=== PATIENT | male | born 1980 | race Caucasian/White ===

== ENCOUNTER 2024-05-22 02:44 | Inpatient (IN) ==
--- NOTE | 2024-05-22 03:12 | Emergency Department Note ---
Impression & Plan Cellulitis of right lower extremity, Elevated troponin, History of pulmonary embolism, Lymphangitis of lower extremity, Chest pain ED Provider Note CHIEF COMPLAINT: Right leg pain HISTORY OF PRESENTING ILLNESS: This 44-year-old male patient presents to the emergency department with his significant other for evaluation of right lower extremity redness, swelling, and pain. The symptoms started 2-3 days ago. He has had intermittent fever up to 102 F max. He is currently on Eliquis for history of PE in January 2024. He denies any injury or trauma to the area. He rates his discomfort as 7/10. He has some discomfort in the left side of his chest as well for the past 24 hrs. Denies SOB. Denies abdominal pain, nausea, or vomiting. He is able to walk, but with a limp. He has been taking Tylenol without improvement of his symptoms. He did take 1 Advil yesterday when his fever was really high and the Tylenol wasn't working. His tetanus shot is up to date. His PCP prescribed Doxycycline yesterday to cover for possible infection, but only saw pictures and did not examine the patient. REVIEW OF SYSTEMS: See HPI for pertinent positives and pertinent negatives. ALLERGIES: NKDA MEDICATIONS: Lisinopril-HCTZ, Eliquis, Vit D, Zyrtec PAST MEDICAL HISTORY: HTN, history of PE, allergic rhinitis PHYSICAL EXAM: VITALS: Vitals are noted on the nurse's note and reviewed by myself. GENERAL: Non toxic, no acute distress, non-diaphoretic. SKIN/MUSCULOSKELETAL: The patient has significant erythema and edema of the right lower extremity mainly from the ankle to the knee. This area also has some nonblanching beefy erythema. There is some lymphatic streaking up into the right groin. Possible cording felt, but this may just be secondary to edema. No erythema, edema, or warmth of the left lower extremity. The patient is tender to palpation over the area of erythema and edema of the right lower extremity. No bony or joint tenderness to palpation. Normal sensation to light and sharp touch of the right lower extremity. Dorsalis pedis and posterior tibial pulse 2+ and equal in the bilateral lower extremities. Capillary refill <2 sec. EYES: PERRLA. EOMI. Conjunctivae without injection, sclerae without icterus. NOSE: Patent without discharge. MOUTH: Mucous membranes moist. Uvula midline. Airway patent. NECK: Supple without nuchal rigidity. HEART: Regular rate and rhythm without murmurs gallops or rubs. LUNGS: Clear to auscultation bilaterally without wheezes, rales or rhonchi. No retractions or accessory muscle use. ABDOMEN: Positive bowel sounds x 4. Normal tympanic percussion. Soft, nontender. No masses or organomegaly. Park sign negative. No guarding or rebound tenderness. No focal RLQ or LLQ tenderness. NEURO: Patient was alert and oriented. No focal neurological deficits. DIFFERENTIAL DIAGNOSIS: Differential diagnosis includes cellulitis, abscess, sepsis, DVT, SVT, PE, PR, pneumonia, pericarditis, myocarditis, endocarditis, Lyme disease, or others. ED COURSE AND MEDICAL DECISION MAKING: MEDICATIONS GIVEN: 500 mL normal saline solution bolus. Morphine 4 mg IV and Zofran 4 mg IV. Initially Rocephin 2 g IV was ordered, but this was changed to vancomycin and Zosyn by the admitting provider. MONITOR: Continuous court recording monitor: Order was placed for continuous court recording monitor. Patient was placed on the court recording monitor and continuous pulse ox. Patient was noted to be in normal sinus rhythm at an initial rate of 80 bpm per my interpretation. EKG: EKG was interpreted by myself as normal sinus rhythm at 70 bpm with no acute ST or T wave changes. Repeat EKG showed normal sinus rhythm at 68 bpm with no acute ST or T wave changes and no significant change from his previous EKG. INTERPRETATION OF LABS: I interpreted the labs with full lab results as below in the lab section of this note. Pertinent lab results discussed in the MDM section below. INTERPRETATION OF IMAGING: Imaging studies were interpreted by myself and read by radiology as per the imaging section of this note. CTA of the chest with IV contrast showed no evidence for PE, pneumonia, pericardial effusion, or other acute cardiopulmonary etiology. Venous Doppler of the right lower extremity was negative for DVT, SVT, or other acute abnormalities. CONSULTATIONS: On-call hospitalist MDM SUMMARY: I examined the patient. The patient presented for evaluation of right lower extremity erythema, edema, and warmth that started 2 days ago. He has also had a fever. Started with left-sided chest pain approximately 24 hours ago. He is on Eliquis for history of PE in January 2024. The patient states that he had an echocardiogram and stress test at that time as well. The patient saw hematology and had a hypercoagulability workup without acute abnormalities noted. An IV lock was placed and labs were drawn. Due to his severe IV fluid shortage, the patient was started with 500 mL normal saline solution bolus. The patient was not tachycardic or hypertensive and his lactate was normal. Therefore no additional IV fluids were given in the ER. The patient was given morphine 4 mg IV and Zofran 4 mg IV with resolution of his pain. White blood cell count elevated 11.20. Hemoglobin normal at 15.9. Platelet count normal at 245. Coags were normal. Potassium 3.3 and glucose 125, but CMP otherwise without concerning abnormalities. Magnesium normal. Lactate normal. Due to the significant shortage of blood cultures, only 1 blood culture was obtained. The patient's high-sensitivity troponin was elevated at 682.5 with repeat high- sensitivity troponin at 740.2. I had a meaningful discussion about this patient with Dr. Whitney who agrees with my assessment and the treatment plan. The patient had 2 EKGs that were negative for ischemic changes. The patient's chest pain resolved with the morphine. We do not suspect STEMI or acute ischemia requiring emergent catheterization at this time. His elevated troponin may be secondary to increased demand due to his significant infection versus possible endocarditis versus NSTEMI. CTA of the chest with IV contrast showed no evidence for PE, pneumonia, pericardial effusion, or other acute cardiopulmonary etiology. Venous Doppler of the right lower extremity was negative for DVT, SVT, or other acute abnormalities. The patient's symptoms are likely secondary to a significant cellulitis of the right lower extremity. Initially Rocephin was ordered, but this was changed to vancomycin and Zosyn by the admitting provider. I spoke with the on-call hospitalist who agreed to admit the patient for further evaluation and treatment. Please refer to their dictation for further details. The patient's care was transferred in stable condition. DIAGNOSIS: Cellulitis of the right lower extremity with lymphatic streaking Chest pain Elevated troponin History of PE on Eliquis Past Med/Surg History Problem List (Updated 02/11/21 @ 12:54 by Enid Cueto MA) Chest pain (Acute) Non-ST elevation (NSTEMI) myocardial infarction History of pulmonary embolism (Acute) Elevated troponin (Acute) Cellulitis of right lower extremity (Acute) Chronic anticoagulation Hypomagnesemia Hypokalemia Elevated troponin Lymphangitis of lower extremity (Acute) Cellulitis of right lower extremity from knee to ankle Pulmonary embolism Diagnosed 01/2024 Seasonal allergies Vitamin D deficiency HLD (hyperlipidemia) HTN (hypertension) H/O wisdom tooth extraction Hx of tonsillectomy Family History (Updated 02/11/21 @ 08:05 by Enid Cueto MA) Mother Lung cancer Heart disease afib Hypertension Father Dyslipidemia Hypertension Grandfather (Paternal) Heart disease Grandmother (Maternal) Lung cancer Social History (Updated 02/11/21 @ 08:07 by Enid Cueto MA) Smoking Status: Never smoker Age Quit Using Tobacco: 33; Second Hand Exposure: No; Do You Dip or Chew Tobacco: Yes; Hx Alcohol Use: No Hx Substance Use: Yes Last Used Substance: Days (ago) Substance Use Type Other:: medical Preferred Language: [place] Communication Ability: Effective 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 Beliefs That Will Affect Care: None marital status: Life Partner Current Living Situation: Spouse Current Living Situation Comment: sig other and daughter current occupational status: employed 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 How many Children do You have: 1 Feels Safe at Home: Yes Safety Concerns: Feels Safe At This Time Do you think of yourself as: straight/heterosexual Gender Identity: Male Assistive Devices: None Assistive Devices Comment: using cane over last two days Allergies Allergies Allergy/AdvReac Type Severity Reaction Status Date / Time No Known Allergies Allergy Verified 05/22/24 16:54 Home Meds Home Medications Medication Instructions Recorded Confirmed loratadine 10 mg tablet (Allergy 10 mg PO DAILY 02/11/21 05/22/24 Relief (loratadine)) cholecalciferol (vitamin D3) 25 2,000 unit PO DAILY 02/09/24 05/22/24 mcg (1,000 unit) capsule apixaban 5 mg tablet (Eliquis) 5 mg PO BID 05/22/24 05/22/24 Previous Rx's Medication Instructions Recorded lisinopril 20 1 tab PO DAILY #90 tabs 03/13/24 mg-hydrochlorothiazide 12.5 mg tablet doxycycline hyclate 100 mg tablet 100 mg PO BID #14 tabs 05/21/24 cyanocobalamin (vitamin B-12) 1,000 mcg PO DAILY #30 tabs 05/23/24 1,000 mcg tablet Results & Data (ED) Vital Signs Vital Signs - 24 hr 05/22/24 02:48 05/22/24 04:42 05/22/24 04:44 Temperature 36.8 C Temperature Source Temporal Artery Scan Pulse Rate 86 72 70 Pulse Rate from SpO2 Sensor 72 Respiratory Rate 18 20 Respiratory Effort / Characteristics Non-Labored Spontaneous Respiratory Depth Normal Blood Pressure 153/96 H 128/86 Blood Pressure Mean 115 100 Blood Pressure Position Sitting Pulse Oximetry 95 96 Oxygen Delivery Method Room Air Sepsis Recent Fever Within 48 Hours Yes Sepsis New/Unexplained Change in Mental Status N/A Sepsis Action Taken by Nursing No Action Required 05/22/24 05:15 05/22/24 05:30 Temperature Temperature Source Pulse Rate 71 68 Pulse Rate from SpO2 Sensor 71 69 Respiratory Rate 17 18 Respiratory Effort / Characteristics Respiratory Depth Blood Pressure 140/97 143/86 H Blood Pressure Mean 111 105 Blood Pressure Position Pulse Oximetry 96 96 Oxygen Delivery Method Sepsis Recent Fever Within 48 Hours Sepsis New/Unexplained Change in Mental Status Sepsis Action Taken by Nursing Laboratory Data 05/23/24 06:39 05/23/24 06:39 Lab Results 05/22/24 05/22/24 Range/Units 03:40 05:32 WBC 11.20 H (4.8-10.8) K/ul RBC 5.27 (4.70-6.10) M/uL Hgb 15.9 (14.0-18.0) g/dl Hct 45.1 (42.0-52.0) % MCV 85.6 (80.0-100.0) fL MCH 30.2 (25.0-34.0) pg MCHC 35.3 (32.0-36.0) g/dL RDW Std Deviation 40.3 (36.4-46.3) fL RDW Coeff of Lou 13.0 (11.5-14.5) % Plt Count 245 (130-400) K/uL MPV 9.3 L (9.4-12.4) fL Immature Gran % (Auto) 0.6 % Neut % (Auto) 75.8 % Lymph % (Auto) 13.3 % Stoddard % (Auto) 9.4 % Eos % (Auto) 0.5 % Baso % (Auto) 0.4 % Neut # (Auto) 8.48 H (1.40-6.50) K/uL Lymph # (Auto) 1.49 (1.20-3.40) K/uL Stoddard # (Auto) 1.05 H (0.11-0.59) K/uL Eos # (Auto) 0.06 (0.00-0.50) K/uL Baso # (Auto) 0.05 (0.00-0.20) K/uL Immature Gran # (Auto) 0.07 (0.01-0.20) K/uL PT 11.4 (9.0-12.0) Seconds INR 1.1 (0.9-1.1) APTT 30 (21-31) Seconds PTT Ratio 1.1 Sodium 137 (136-145) mmol/L Potassium 3.3 L (3.5-5.1) mmol/L Chloride 101 (98-107) mmol/L Carbon Dioxide 26 (21-32) mmol/L Anion Gap 10 (3-11) BUN 16 (6-23) mg/dl Creatinine 0.74 (0.6-1.4) mg/dl Est Cr Clr Drug Dosing 181.8 ml/min eGFR 114.58 BUN/Creatinine Ratio 21.6 H (10-20) Glucose 125 H (70-99(Fasting)) mg/dl Lactate 0.9 (0.4-2.0) mmol/L Calcium 8.5 L (8.6-10.3) mg/dl Magnesium 1.8 (1.7-2.4) mg/dl Total Bilirubin 0.7 (0.2-1.0) mg/dl AST 29 (13-39) U/L ALT 30 (7-52) U/L Alkaline Phosphatase 55 (34-104) U/L Troponin I High Sens 682.5 H* 740.2 H* (0-20) pg/ml Total Protein 7.3 (6.0-8.3) gm/dl Albumin 3.8 (3.4-5.0) gm/dl Globulin 3.5 (2.5-4.0) gm/dl Albumin/Globulin Ratio 1.1 (0.9-2) Lyme Disease Screen Negative (Negative) Administered Medications Acetaminophen (Acetaminophen 500 Mg Tab) 1,000 mg PO Q8H PRN PRN Reason: Pain or Fever Stop: 06/21/24 19:47 Last Admin: 05/23/24 11:12 Dose: 1,000 mg Documented By: Admin: 05/22/24 20:03 Dose: 1,000 mg Documented By: BRYON Aspirin (Aspirin 81 Mg Ectab) 81 mg PO [facility] Stop: 06/22/24 08:59 Last Admin: 05/23/24 08:17 Dose: 81 mg Documented By: EP Cyanocobalamin (Cyanocobalamin (B-12) 500 Mcg Tablet) 1,000 mcg PO [facility] Stop: 06/22/24 08:59 Last Admin: 05/23/24 11:05 Dose: 1,000 mcg Documented By: EP Heparin Sodium/Dextrose (Heparin Sodium/Dextrose) 25,000 units in 500 mls @ 26 mls/hr IV .[id number] [facility]; Protocol Stop: 06/21/24 06:44 Last Titration: 05/23/24 19:18 Dose: 1,300 units/hr, 26 mls/hr Documented By: DE Co-signed By: EP Titration: 05/23/24 15:45 Dose: 1,300 units/hr, 26 mls/hr Documented By: EP Co-signed By: BT Admin: 05/23/24 07:54 Dose: 1,200 units/hr, 24 mls/hr Documented By: EP Co-signed By: BETINA Titration: 05/23/24 07:54 Dose: Infused Documented By: EP Co-signed By: BETINA Titration: 05/23/24 07:40 Dose: 1,200 units/hr, 24 mls/hr Documented By: EP Co-signed By: CA Titration: 05/23/24 07:20 Dose: 1,000 units/hr, 20 mls/hr Documented By: EP Co-signed By: BRYON Titration: 05/22/24 19:06 Dose: 1,000 units/hr, 20 mls/hr Documented By: BECK Co-signed By: BRYON Admin: 05/22/24 07:08 Dose: 1,000 units/hr, 20 mls/hr Documented By: MELANIA Co-signed By: HS Ceftriaxone Sodium (Rocephin) 2,000 mg in 50 mls @ 100 mls/hr IV Q24H [facility] Stop: 05/30/24 13:59 Last Infusion: 05/23/24 16:21 Dose: Infused Documented By: HCB Co-signed By: DAYRON Admin: 05/23/24 15:47 Dose: 100 mls/hr Documented By: KYLEE Isosorbide Mononitrate (Isosorbide Stoddard Extended Rel 30 Mg Tabcr) 30 mg PO QAM KRISTINA Stop: 06/21/24 16:29 Last Admin: 05/23/24 08:16 Dose: 30 mg Documented By: Admin: 05/22/24 17:00 Dose: 30 mg Documented By: BECK Metoprolol Tartrate (Metoprolol Tartrate 25 Mg Tab) 25 mg PO BID KRSITINA Stop: 06/21/24 20:59 Last Admin: 05/23/24 08:16 Dose: 25 mg Documented By: Admin: 05/22/24 20:49 Dose: 25 mg Documented By: BRYON Discontinued Medications Aspirin (Aspirin 325 Mg Ectab) 325 mg PO ONE ONE Stop: 05/22/24 17:09 Last Admin: 05/22/24 17:56 Dose: 325 mg Documented By: BECK Heparin Sodium (Porcine) (Heparin Sod (Porcine) 1000 Unit/Ml) 4,500 units IV NOW ONE Stop: 05/23/24 07:36 Last Admin: 05/23/24 09:52 Dose: Not Given Documented By: KYLEE Heparin Sodium/Dextrose (Heparin Iv Adult Wt-Based Low-Dose *No* Initial Bolus Protocol) 1 each IV ONE STA; Protocol Stop: 05/22/24 05:49 Last Admin: 05/22/24 07:09 Dose: Not Given Documented By: MELANIA Sodium Chloride (Nss) 500 mls @ 999 mls/hr IV .Q31M ONE Stop: 05/22/24 03:52 Last Infusion: 05/22/24 05:01 Dose: Infused Documented By: Admin: 05/22/24 03:46 Dose: 999 mls/hr Documented By: ASHLEY Ceftriaxone Sodium (Rocephin) 2,000 mg in 50 mls @ 100 mls/hr IV NOW STA Stop: 05/22/24 05:30 Last Admin: 05/22/24 06:26 Dose: Not Given Documented By: ASHLEY Vancomycin HCl 2,500 mg/ (Sodium Chloride) 550 mls @ 180 mls/hr IV NOW STA Stop: 05/22/24 08:51 Last Infusion: 05/22/24 10:57 Dose: Infused Documented By: Admin: 05/22/24 07:35 Dose: 180 mls/hr Documented By: MELANIA Piperacillin Sod/Tazobactam Sod (Zosyn) 4.5 gm in 100 mls @ 25 mls/hr IV Q8H KRISTINA; Protocol Stop: 05/29/24 11:59 Last Infusion: 05/23/24 15:02 Dose: Infused Documented By: Admin: 05/23/24 11:11 Dose: 25 mls/hr Documented By: Infusion: 05/23/24 07:56 Dose: Infused Documented By: Admin: 05/23/24 03:46 Dose: 25 mls/hr Documented By: Infusion: 05/22/24 23:32 Dose: Infused Documented By: Admin: 05/22/24 19:47 Dose: 25 mls/hr Documented By: Infusion: 05/22/24 15:34 Dose: Infused Documented By: Admin: 05/22/24 11:29 Dose: 25 mls/hr Documented By: BECK Magnesium Sulfate/Dextrose (Magnesium Sulfate / D5w) 1 gm in 100 mls @ 50 mls/hr IV ONE STA Stop: 05/22/24 07:47 Last Infusion: 05/22/24 09:08 Dose: Infused Documented By: Admin: 05/22/24 06:24 Dose: 50 mls/hr Documented By: ASHLEY Piperacillin Sod/Tazobactam Sod (Zosyn) 4.5 gm in 100 mls @ 200 mls/hr IV ONE STA; Protocol Stop: 05/22/24 06:18 Last Infusion: 05/22/24 07:05 Dose: Infused Documented By: Admin: 05/22/24 06:23 Dose: 200 mls/hr Documented By: ASHLEY Potassium Chloride/Sodium Chloride (Normal Saline W/20 Meq Kcl) 20 meq in 1,000 mls @ 80 mls/hr IV .[id number] STA Stop: 05/22/24 18:23 Last Infusion: 05/22/24 20:41 Dose: Infused Documented By: Admin: 05/22/24 07:20 Dose: 80 mls/hr Documented By: MELANIA Vancomycin HCl 1,250 mg/ (Dextrose) 275 mls @ 200 mls/hr IV Q8H KRISTINA Stop: 05/29/24 15:59 Last Infusion: 05/23/24 00:50 Dose: Infused Documented By: Admin: 05/22/24 23:05 Dose: 200 mls/hr Documented By: Infusion: 05/22/24 16:49 Dose: Infused Documented By: Admin: 05/22/24 15:18 Dose: 200 mls/hr Documented By: BECK Heparin Sodium (Porcine) 4,000 (units/ Syringe) 4 mls @ 10 mls/min IV NOW ONE Stop: 05/23/24 08:01 Last Admin: 05/23/24 08:09 Dose: 10 mls/min Documented By: KYLEE Co-signed By: BETINA Vancomycin HCl 2,000 mg/ (Sodium Chloride) 540 mls @ 200 mls/hr IV Q12H KRISTINA Stop: 05/29/24 23:59 Last Infusion: 05/23/24 14:53 Dose: Infused Documented By: Admin: 05/23/24 08:15 Dose: 200 mls/hr Documented By: KYLEE Ioversol (Optiray 320 125ml) 125 ml IV ONCE ONE Stop: 05/22/24 04:39 Last Admin: 05/22/24 04:38 Dose: 118 ml Documented By: LYNDSEY Morphine Sulfate (Morphine Sulfate 4 Mg/Ml 1 Ml Carp\Vial) 4 mg IV NOW STA Stop: 05/22/24 03:23 Last Admin: 05/22/24 03:45 Dose: 4 mg Documented By: ASHLEY Ondansetron HCl (Ondansetron Inj 2 Mg/Ml 2 Ml Vial) 4 mg IV NOW STA Stop: 05/22/24 03:23 Last Admin: 05/22/24 03:46 Dose: 4 mg Documented By: ASHLEY Potassium Chloride (Potassium Chloride Crtab 20 Meq Tabcr) 40 meq PO NOW STA Stop: 05/22/24 05:38 Last Admin: 05/22/24 06:24 Dose: 40 meq Documented By: ASHLEY Imaging Data Radiologist's Impression: Venous Doppler Study 05/22/24 03:22 Exam(s): US VENOUS RIGHT LOWER EXTREMITY EXAM: US Duplex Right Lower Extremity Veins CLINICAL HISTORY: Evaluate Deep vein thrombosis vs cellulitis. TECHNIQUE: Real-time duplex ultrasound scan of the right lower extremity veins integrating B-mode two-dimensional vascular structure, Doppler spectral analysis, color flow Doppler imaging and compression. COMPARISON: No relevant prior studies available. FINDINGS: Deep veins: Unremarkable. No Deep vein thrombosis in the visualized common femoral, femoral, proximal deep femoral or popliteal veins. The veins demonstrate normal color flow, are normally compressible, with normal phasic flow and/or augmentation response. Superficial veins: Unremarkable. No thrombus in the visualized great saphenous vein. Soft tissues: No acute findings. No popliteal cyst. IMPRESSION: No deep vein thrombosis of the right lower extremity. Electronically signed by: Jaylin Oakley MD 05/22/24 04:52 AM Chest CTA 05/22/24 03:23 Exam(s): CTA CHEST IV Amt: 118 ML OPTIRAY 320 EXAM: CT Angiography Chest With Intravenous Contrast CLINICAL HISTORY: Chest Pain TECHNIQUE: Axial computed tomographic angiography images of the chest with intravenous contrast. MIPS images were created and reviewed. CTDI is 40. 27 mGy and DLP is 931.59 mGy-cm. Automated exposure control was utilized for the study. A dose lowering technique was utilized adhering to the principles of ALARA. MIP reconstructed images were created and reviewed. COMPARISON: No relevant prior studies available. FINDINGS: Pulmonary arteries: Unremarkable. No pulmonary embolism. Aorta: No acute findings. No thoracic aortic aneurysm. Lungs: Unremarkable. No mass. No consolidation. Pleural space: Unremarkable. No significant effusion. No pneumothorax. Heart: Unremarkable. No cardiomegaly. No significant pericardial effusion. No evidence of RV dysfunction. Bones/joints: There are degenerative changes of the spine. No acute fracture. No dislocation. Soft tissues: Unremarkable. Lymph nodes: Unremarkable. No enlarged lymph nodes. IMPRESSION: No pulmonary embolus. Electronically signed by: Jaylin Oakley MD 05/22/24 04:53 AM Discharge Plan Visit Data Chief Complaint: Leg Injury/Pain Stated Complaint: RIGHT LEG PAIN ED Provider: Naz Whitney ED Midlevel Provider: Holly Alvarez Discharge Problem: Cellulitis of right lower extremity, Elevated troponin, History of pulmonary embolism, Lymphangitis of lower extremity, Chest pain Patient Disposition: Admitted As Inpatient Condition: Fair Discharge Instructions Interventions: ED Discharge Assessment Last Done: 05/22/24 08:33 Discharge Problem: Chest pain Qualifiers: Chest pain type: unspecified Qualified Code(s): R07.9 - Chest pain, unspecified
[2024-05-22] MEDS: MoRPHine SULFATE 4 MG/ML 1 ML CARP\\VIAL IV STA (03:45)
[2024-05-22] MEDS: SODIUM CHLORIDE 0.9% 500 ML IV ONE (03:46)
[2024-05-22] MEDS: ONDANSETRON INJ 2 MG/ML 2 ML VIAL IV STA (03:46)
[2024-05-22 04:02] LABS: Basophils # (auto) 0.05 K/uL (0.00-0.20); Basophils % (auto) 0.4 %; Eosinophils # (auto) 0.06 K/uL (0.00-0.50); Eosinophils % (auto) 0.5 %; Hematocrit (blood only) 45.1 % (42.0-52.0); Hemoglobin 15.9 g/dl (14.0-18.0); Immature Granulocytes # (auto) 0.07 K/uL (0.01-0.20); Immature Granulocytes % (auto) 0.6 %; Lymphocytes # (auto) 1.49 K/uL (1.20-3.40); Lymphocytes % (auto) 13.3 %; Mean Corpuscular Hemoglobin 30.2 pg (25.0-34.0); Mean Corpuscular Hgb Conc 35.3 g/dL (32.0-36.0); Mean Corpuscular Volume 85.6 fL (80.0-100.0); Mean Platelet Volume 9.3 fL (9.4-12.4); Monocytes # (auto) 1.05 K/uL (0.11-0.59); Monocytes % (auto) 9.4 %; Neutrophils # (auto) 8.48 K/uL (1.40-6.50); Neutrophils % (auto) 75.8 %; Platelet Count 245 K/uL (130-400); RDW Standard Deviation 40.3 fL (36.4-46.3); Red Blood Count 5.27 M/uL (4.70-6.10)
[2024-05-22 04:18] LABS: Albumin Globulin Ratio 1.1 (0.9-2); Albumin Level 3.8 gm/dl (3.4-5.0); BUN Creatinine Ratio 21.6 (10-20); Bilirubin,Total 0.7 mg/dl (0.2-1.0); Calcium 8.5 mg/dl (8.6-10.3); Creatinine Clr Calc Pharmacy 181.8 ml/min; Globulin 3.5 gm/dl (2.5-4.0); Magnesium 1.8 mg/dl (1.7-2.4); Potassium 3.3 mmol/L (3.5-5.1); Total Protein 7.3 gm/dl (6.0-8.3)
[2024-05-22 04:29] LABS: INR 1.1 (0.9-1.1); Partial Thromboplastin Ratio 1.1; Partial Thromboplastin Time 30 Seconds (21-31); Prothrombin Time 11.4 Seconds (9.0-12.0); Troponin I High Sensitivity 682.5 pg/ml (0-20)
[2024-05-22] MEDS: OPTIRAY 320 125ml IV ONE (04:38)
--- NOTE | 2024-05-22 04:53 | Ultrasound Report ---
Exam(s): US VENOUS RIGHT LOWER EXTREMITY EXAM: US Duplex Right Lower Extremity Veins CLINICAL HISTORY: Evaluate Deep vein thrombosis vs cellulitis. TECHNIQUE: Real-time duplex ultrasound scan of the right lower extremity veins integrating B-mode two-dimensional vascular structure, Doppler spectral analysis, color flow Doppler imaging and compression. COMPARISON: No relevant prior studies available. FINDINGS: Deep veins: Unremarkable. No Deep vein thrombosis in the visualized common femoral, femoral, proximal deep femoral or popliteal veins. The veins demonstrate normal color flow, are normally compressible, with normal phasic flow and/or augmentation response. Superficial veins: Unremarkable. No thrombus in the visualized great saphenous vein. Soft tissues: No acute findings. No popliteal cyst. IMPRESSION: No deep vein thrombosis of the right lower extremity. Electronically signed by: Jaylin Oakley MD 05/22/24 04:52 AM
--- NOTE | 2024-05-22 04:54 | CT Scan Report ---
Exam(s): CTA CHEST IV Amt: 118 ML OPTIRAY 320 EXAM: CT Angiography Chest With Intravenous Contrast CLINICAL HISTORY: Chest Pain TECHNIQUE: Axial computed tomographic angiography images of the chest with intravenous contrast. MIPS images were created and reviewed. CTDI is 40. 27 mGy and DLP is 931.59 mGy-cm. Automated exposure control was utilized for the study. A dose lowering technique was utilized adhering to the principles of ALARA. MIP reconstructed images were created and reviewed. COMPARISON: No relevant prior studies available. FINDINGS: Pulmonary arteries: Unremarkable. No pulmonary embolism. Aorta: No acute findings. No thoracic aortic aneurysm. Lungs: Unremarkable. No mass. No consolidation. Pleural space: Unremarkable. No significant effusion. No pneumothorax. Heart: Unremarkable. No cardiomegaly. No significant pericardial effusion. No evidence of RV dysfunction. Bones/joints: There are degenerative changes of the spine. No acute fracture. No dislocation. Soft tissues: Unremarkable. Lymph nodes: Unremarkable. No enlarged lymph nodes. IMPRESSION: No pulmonary embolus. Electronically signed by: Jaylin Oakley MD 05/22/24 04:53 AM
[2024-05-22] MEDS ORDERED: VANCOMYCIN CONSULT ACTIVE PRN (05:36)
[2024-05-22] MEDS ORDERED: ACETAMINOPHEN 1,000 MG/100 ML VIAL IV PRN (05:37)
--- NOTE | 2024-05-22 05:56 | History & Physical Report ---
Date of Service May 22, 2024 Assessment & Plan (1) Cellulitis of right lower extremity from knee to ankle: (2) Lymphangitis of lower extremity: (3) Elevated troponin: (4) Chronic anticoagulation: (5) Pulmonary embolism: (6) HLD (hyperlipidemia): (7) HTN (hypertension): (8) Hypokalemia: (9) Hypomagnesemia: Plan Cellulitis right lower extremity with ascending lymphangitis- Place on vancomycin IV per pharmacokinetic monitoring Zosyn 4.5 g IV every 8 hours Right lower extremity DVT study is negative this evening Patient with negative bilateral lower extremity Dopplers on 02/09/2024 Great saphenous vein reflux was identified in the below-knee segment right lower extremity on venous Dopplers on 06/02/2023 Negative left lower extremity arterial Doppler on 02/11/2024 Was seen by hematology Dr. Childress at [facility] on 02/24/2024 Consulting infectious disease or other extremity cellulitis and ascending lymphangitis, and possible endocarditis Pulmonary embolism- Involving small segmental to subsegmental pulmonary arteries with evidence of mild right ventricular strain noted on CTA PE protocol on 02/09/2024 Since that time he has been on Eliquis, with last dosing taken 6:30 PM last evening Changing Eliquis to heparin drip low-dose no bolus per protocol at 6:30 AM this morning in case a procedure needs to be done later on in the day today Elevated troponin/left-sided chest pain with mild dyspnea on exertion- The patient will be admitted to telemetry for serial cardiac enzymes, serial EKG's, cardiac rhythm monitoring and a 2-D echocardiogram with Dopplers. Troponin 682.5 with follow-up 740.2 EKG showed normal sinus rhythm at 70, with no acute ST-T changes In addition to evaluating for CAD/NSTEMI, there is concern regarding possible endocarditis in the setting of infection, which will be covered by the above antibiotics Consult cardiology Electrolyte disturbances/hypokalemia/hypomagnesemia- Likely secondary to lisinopril/HCTZ, which will be held Given Klor-Con 40 mill equivalents p.o. Giving magnesium sulfate [address] on NSS + KCl 20 mEq's at 80 mL/h x 1 L Repeat laboratories in the a.m. History of Present Illness Chief Complaint: The patient reports that about 10 days ago he started to feel some intermittent left-sided chest pain with mild dyspnea on exertion, that would come and go. 3 days ago he developed a temperature to 101 F and had some right lower extremity discomfort at that time. 2 days ago he started develop right lower extremity swelling, pain and it felt warm. This evening he woke up, and right lower extremity was significantly worse, looking much darker red color, pain was worse, and the warmth was worse. His most recent changes woke him up from sleep, he became concerned, and came to the emergency department for assessment. Primary Care Provider: Ana Paula Olivas DO The patient is a 44-year-old male with a past medical history including pulmonary embolism, seasonal allergies, vitamin D deficiency, hyperlipidemia, hypertension, and morbid obesity. He had visited his PCP 02/09/2024 due to left calf pain, and had a stat venous Doppler ordered at that time which was negative for DVT in the left lower extremity.. His first venous Doppler study was performed on 06/02/2023 which was negative for bilateral DVT, but did but did show great saphenous vein reflux identified in the below knee segment of the right lower extremity. He also underwent a CT angio chest PE protocol on 02/09/2024 which showed small segmental to subsegmental emboli in right upper and right lower lobes and a suspected tiny subsegmental left lower lobe pulmonary artery embolus, for which she was started on Eliquis. On 02/11/2024 he underwent left lower extremity arterial studies that were negative for any significant stenosis. The patient presents to the emergency department due to symptoms as noted above. Allergies Allergy/AdvReac Type Severity Reaction Status Date / Time No Known Allergies Allergy Verified 02/09/24 12:29 Home Medications Medication Instructions Recorded Confirmed Type loratadine 10 mg tablet (Allergy 10 mg PO DAILY 02/11/21 02/09/24 History Relief (loratadine)) cholecalciferol (vitamin D3) 25 2,000 unit PO DAILY 02/09/24 02/09/24 History mcg (1,000 unit) capsule apixaban 5 mg (74 tabs) tablets in 5 mg PO BID #180 ea 03/02/24 Rx a dose pack (Eliquis) lisinopril 20 1 tab PO DAILY #90 tabs 03/13/24 Rx mg-hydrochlorothiazide 12.5 mg tablet doxycycline hyclate 100 mg tablet 100 mg PO BID #14 tabs 05/21/24 Rx Past Med/Surg History Problem List (Updated 02/11/21 @ 12:54 by Enid Cueto MA) Chronic anticoagulation Hypomagnesemia Hypokalemia Elevated troponin Lymphangitis of lower extremity Cellulitis of right lower extremity from knee to ankle Pulmonary embolism Diagnosed 01/2024 Seasonal allergies Vitamin D deficiency HLD (hyperlipidemia) HTN (hypertension) H/O wisdom tooth extraction Hx of tonsillectomy Family History (Updated 02/11/21 @ 08:05 by Enid Cueto MA) Mother Lung cancer Heart disease afib Hypertension Father Dyslipidemia Hypertension Grandfather (Paternal) Heart disease Grandmother (Maternal) Lung cancer Social History (Updated 02/11/21 @ 08:07 by Enid Cueto MA) Smoking Status: Former smoker Age Quit Using Tobacco: 33; Second Hand Exposure: No; Do You Dip or Chew Tobacco: Yes; Hx Alcohol Use: No Hx Substance Use: No Preferred Language: Irish marital status: Life Partner Current Living Situation: Significant Other Current Living Situation Comment: sig other and daughter current occupational status: employed 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 How many Children do You have: 1 Feels Safe at Home: Yes Do you think of yourself as: straight/heterosexual Gender Identity: Male Review of Systems Review of Systems: The patient denies palpitations, sore throat, chills, sweats, nausea, vomiting, diarrhea , constipation, abdominal pain, pelvic pain, blood in urine or stool, dysuria, urinary frequency or urgency, lightheadedness, dizziness, headache, memory loss, loss of consciousness, abnormal bruising or bleeding, imbalance, focal or generalized weakness, numbness or tingling in arms, generalized arthralgias or myalgias, back or neck pain, or night sweats. The review of systems is otherwise negative other than for that already noted above, and at least 10 systems have been reviewed. Physical Exam Physical Exam: The patient is awake, alert and oriented 3, well developed and well nourished, normocephalic and atraumatic, lying in bed and in no acute distress. HEENT--PERRL, EOMI, mucous membranes and oropharynx normal Neck--supple. No JVD. No bruits. Thyroid normal, trachea midline, no adenopathy. Heart--normal S1 and S2. No murmurs, rubs or gallops. Lungs--clear bilaterally, no respiratory distress, no accessory muscle use. Abdomen--normal bowel sounds and soft. Nontender. Nondistended. Obese Extremities--right lower extremity with 1+ pretibial and pedal pitting edema. Left lower extremity is without edema Dermatologic--right lower extremity with dark red central area, surrounding account technician red area, with significant warmth. There is tracking medially from the upper calf palpable lymph node left lower extremity is normal. Neurologic--cranial nerves II through XII grossly intact. Rheumatologic--normal range of motion. Psychiatric--normal affect. Results & Data Results & Data Vital Signs (Past 12 Hours) Vital Signs Temp Pulse Resp BP Pulse Ox O2 Del Method 05/22/24 05:30 68 18 143/86 H 96 05/22/24 05:15 71 17 140/97 96 05/22/24 04:44 70 05/22/24 04:42 72 20 128/86 96 05/22/24 02:48 36.8 C 86 18 153/96 H 95 Room Air Laboratory Results Laboratory Results WBC 11.20 K/ul (4.8-10.8) H 05/22/24 03:40 RBC 5.27 M/uL (4.70-6.10) 05/22/24 03:40 Hgb 15.9 g/dl (14.0-18.0) 05/22/24 03:40 Hct 45.1 % (42.0-52.0) 05/22/24 03:40 MCV 85.6 fL (80.0-100.0) 05/22/24 03:40 MCH 30.2 pg (25.0-34.0) 05/22/24 03:40 MCHC 35.3 g/dL (32.0-36.0) 05/22/24 03:40 RDW Std Deviation 40.3 fL (36.4-46.3) 05/22/24 03:40 RDW Coeff of Lou 13.0 % (11.5-14.5) 05/22/24 03:40 Plt Count 245 K/uL (130-400) 05/22/24 03:40 MPV 9.3 fL (9.4-12.4) L 05/22/24 03:40 Immature Gran % (Auto) 0.6 % 05/22/24 03:40 Neut % (Auto) 75.8 % 05/22/24 03:40 Lymph % (Auto) 13.3 % 05/22/24 03:40 Sabine % (Auto) 9.4 % 05/22/24 03:40 Eos % (Auto) 0.5 % 05/22/24 03:40 Baso % (Auto) 0.4 % 05/22/24 03:40 Neut # (Auto) 8.48 K/uL (1.40-6.50) H 05/22/24 03:40 Lymph # (Auto) 1.49 K/uL (1.20-3.40) 05/22/24 03:40 Sabine # (Auto) 1.05 K/uL (0.11-0.59) H 05/22/24 03:40 Eos # (Auto) 0.06 K/uL (0.00-0.50) 05/22/24 03:40 Baso # (Auto) 0.05 K/uL (0.00-0.20) 05/22/24 03:40 Immature Gran # (Auto) 0.07 K/uL (0.01-0.20) 05/22/24 03:40 PT 11.4 Seconds (9.0-12.0) 05/22/24 03:40 INR 1.1 (0.9-1.1) 05/22/24 03:40 APTT 30 Seconds (21-31) 05/22/24 03:40 PTT Ratio 1.1 05/22/24 03:40 Sodium 137 mmol/L (136-145) 05/22/24 03:40 Potassium 3.3 mmol/L (3.5-5.1) L 05/22/24 03:40 Chloride 101 mmol/L (98-107) 05/22/24 03:40 Carbon Dioxide 26 mmol/L (21-32) 05/22/24 03:40 Anion Gap 10 (3-11) 05/22/24 03:40 BUN 16 mg/dl (6-23) 05/22/24 03:40 Creatinine 0.74 mg/dl (0.6-1.4) 05/22/24 03:40 Est Cr Clr Drug Dosing 181.8 ml/min 05/22/24 03:40 eGFR 114.58 05/22/24 03:40 BUN/Creatinine Ratio 21.6 (10-20) H 05/22/24 03:40 Glucose 125 mg/dl (70-99(Fasting)) H 05/22/24 03:40 Lactate 0.9 mmol/L (0.4-2.0) 05/22/24 03:40 Calcium 8.5 mg/dl (8.6-10.3) L 05/22/24 03:40 Magnesium 1.8 mg/dl (1.7-2.4) 05/22/24 03:40 Total Bilirubin 0.7 mg/dl (0.2-1.0) 05/22/24 03:40 AST 29 U/L (13-39) 05/22/24 03:40 ALT 30 U/L (7-52) 05/22/24 03:40 Alkaline Phosphatase 55 U/L (34-104) 05/22/24 03:40 Troponin I High Sens 740.2 pg/ml (0-20) H* 05/22/24 05:32 Total Protein 7.3 gm/dl (6.0-8.3) 05/22/24 03:40 Albumin 3.8 gm/dl (3.4-5.0) 05/22/24 03:40 Globulin 3.5 gm/dl (2.5-4.0) 05/22/24 03:40 Albumin/Globulin Ratio 1.1 (0.9-2) 05/22/24 03:40 Lyme Disease Screen Negative (Negative) 05/22/24 03:40 Impressions Venous Doppler Study 05/22/24 03:22 Exam(s): US VENOUS RIGHT LOWER EXTREMITY EXAM: US Duplex Right Lower Extremity Veins CLINICAL HISTORY: Evaluate Deep vein thrombosis vs cellulitis. TECHNIQUE: Real-time duplex ultrasound scan of the right lower extremity veins integrating B-mode two-dimensional vascular structure, Doppler spectral analysis, color flow Doppler imaging and compression. COMPARISON: No relevant prior studies available. FINDINGS: Deep veins: Unremarkable. No Deep vein thrombosis in the visualized common femoral, femoral, proximal deep femoral or popliteal veins. The veins demonstrate normal color flow, are normally compressible, with normal phasic flow and/or augmentation response. Superficial veins: Unremarkable. No thrombus in the visualized great saphenous vein. Soft tissues: No acute findings. No popliteal cyst. IMPRESSION: No deep vein thrombosis of the right lower extremity. Electronically signed by: Jaylin Oakley MD 05/22/24 04:52 AM Chest CTA 05/22/24 03:23 Exam(s): CTA CHEST IV Amt: 118 ML OPTIRAY 320 EXAM: CT Angiography Chest With Intravenous Contrast CLINICAL HISTORY: Chest Pain TECHNIQUE: Axial computed tomographic angiography images of the chest with intravenous contrast. MIPS images were created and reviewed. CTDI is 40. 27 mGy and DLP is 931.59 mGy-cm. Automated exposure control was utilized for the study. A dose lowering technique was utilized adhering to the principles of ALARA. MIP reconstructed images were created and reviewed. COMPARISON: No relevant prior studies available. FINDINGS: Pulmonary arteries: Unremarkable. No pulmonary embolism. Aorta: No acute findings. No thoracic aortic aneurysm. Lungs: Unremarkable. No mass. No consolidation. Pleural space: Unremarkable. No significant effusion. No pneumothorax. Heart: Unremarkable. No cardiomegaly. No significant pericardial effusion. No evidence of RV dysfunction. Bones/joints: There are degenerative changes of the spine. No acute fracture. No dislocation. Soft tissues: Unremarkable. Lymph nodes: Unremarkable. No enlarged lymph nodes. IMPRESSION: No pulmonary embolus. Electronically signed by: Jaylin Oakley MD 05/22/24 04:53 AM Code Status & VTE Plan Code Status Full code VTE Prophylaxis Plan VTE Prophylaxis will be ordered: Yes PG Care Time/CCT Total # of Minutes Spent Total Time Spent with Patient: Total time spent is greater than 50% in coordination of care (as documented) at patient's floor/unit and/or counseling patient: Coding Level of Care Code 80493 INT INP/OBS CARE 3/75MIN Diagnoses Cellulitis of right lower extremity from knee to ankle L03.115 Lymphangitis of lower extremity I89.1 Elevated troponin R79.89 Chronic anticoagulation Z79.01 Pulmonary embolism I26.99 HLD (hyperlipidemia) E78.5 HTN (hypertension) I10 Hypokalemia E87.6 Hypomagnesemia E83.42
[2024-05-22] MEDS: PIPERACILLIN/TAZOBACTAM 4.5 GM/100 ML BAG IV STA (06:23)
[2024-05-22] MEDS: POTASSIUM CHLORIDE CRTAB 20 MEQ TABCR PO STA (06:24)
[2024-05-22] MEDS: MAGNESIUM SULFATE / D5W 1 GM/100 ML BAG IV STA (06:24)
[2024-05-22] MEDS: cefTRIAXone SODIUM 2,000 MG/50 ML BAG IV STA (06:26)
[2024-05-22] MEDS: HEPARIN SODIUM/DEXTROSE 25,000 UNITS/500 ML BAG IV SCH (07:08)
[2024-05-22] MEDS: Heparin IV Adult Wt-Based Low-Dose *NO* INITIAL Bolus Protocol IV STA (07:09)
[2024-05-22] MEDS: NSS + 20MEQ KCL 20 MEQ/1,000 ML BAG IV STA (07:20)
[2024-05-22] MEDS: VANCOMYCIN HCL 2,500 MG in SODIUM CHLORIDE 0.9% 500 ML IV STA (07:35)
--- NOTE | 2024-05-22 07:36 | Hospitalist Progress Note ---
Date of Service May 22, 2024 Assessment & Plan (1) Cellulitis of right lower extremity from knee to ankle: (2) Lymphangitis of lower extremity: (3) Elevated troponin: (4) Chronic anticoagulation: (5) Pulmonary embolism: (6) HLD (hyperlipidemia): (7) HTN (hypertension): (8) Hypokalemia: (9) Hypomagnesemia: Plan Cellulitis right lower extremity with ascending lymphangitis Right lower extremity DVT study is negative in ED on 05/21 and negative bilateral lower extremity Doppler on 02/08. Negative left lower extremity arterial Doppler on 02/11/2024. Follows with Dr. Childress, hematology with [facility]. Placed on IV vancomycin and Zosyn in ED. Infectious disease consulted. - ID recommendations Collect another set of blood cultures (only 1 set was sent from admission), f/u on cx MRSA screen Continue broad coverage for now with vancomycin and zosyn adjust according to cx results - IV vancomycin 1.25 g q8h - IV Zosyn 4.5 mg q8h - IV Acetaminophen 1000mg q8h PRN for pain and fever - Follow blood cultures Pulmonary embolism Involving small segmental to subsegmental pulmonary arteries with evidence of mild right ventricular strain noted on CTA PE protocol on 02/09/2024. Was started on Eliquis. Last dosing taken 6:30 PM last evening. Started on heparin drip low- dose in ED in preparation for procedures. - Continue heparin drip Elevated troponin/left-sided chest pain with mild dyspnea on exertion Serial troponin starting in ED- Troponin 682.5 with follow-up 740.2, 964 and final at 1430 was 807. EKG showed sinus at 70 bpm and no acute ST-T changes. CAD/NSTEMI vs endocarditis. The patient admitted to telemetry for cardiac rhythm monitoring and a 2-D echocardiogram with doppler. - Cardiology recommendations Start isosorbide mononitrate 30mg Start low dose beta pa Start aspirin 325mg x 1 day, then 81 mg Coronary angiography following result of blood cultures - Started isosorbide mononitrate 30 mg qam - Started metoprolol 25 mg qam - Given Aspirin 325mg Start aspirin 81 mg in am Electrolyte disturbances/hypokalemia/hypomagnesemia Likely secondary to lisinopril/HCTZ, which will be held. Given Klor-Con 40 mEq, magnesium sulfate 1 g IV and NSS + KCl 20 mEq's at 80 mL/h x 1 L in ED. - BMP in AM to assess electrolytes Supervising Physician Co-Signing Physician Notes I personally examined the patient and verified all hayward points of history and exam, discussed case, and agree with decision making with Dr Gloria seen in f/u from early AM admission leg feeling about the same, chest pain better vitals noted nad RLE red warm no fluctuance no crepitis LE cellulitis - await cultures but suspect can downgrade to MSSA coverage in near future CP/NSTEMI - for LHC during this admission (sharmaine if sx recur) anticoagulated chronically (currently on heparin gtt to allow for reversibility if needed for procedures) otherwise as above Subjective Pt is a 44 yo male with history of PE, HTN, and HLD. Presented to ED with right leg swelling, discoloration and pain. CTA negative for PE, LE doppler negative for DVT. Presumable cellulitis and started on IV Vancomycin and Zosyn. This morning, pt reports he leg pain occurs when he drops leg off bed or when he is walking. Pain radiates from lower leg/calf to medial thigh and groin. Pt also c/o left sided chest pain that is intermittent and not worse with activity. Pt describes as mild soreness, not reproducible with palpation. He denies dizziness, SOB, or radiation of pain. Pt denies nausea, vomiting, diarrhea, constipation, numbness/tingling, weakness or headache. Review of Systems Review of Systems: As per HPI Physical Exam Physical Exam: The patient is awake, alert and oriented 3, well developed and well nourished, normocephalic and atraumatic, lying in bed and in no acute distress. HEENT--PERRL, EOMI, mucous membranes and oropharynx normal Neck--supple. No JVD. No bruits. Thyroid normal, trachea midline, no adenopathy. Heart--normal S1 and S2. No murmurs, rubs or gallops. Lungs--clear bilaterally, no respiratory distress, no accessory muscle use. Abdomen--normal bowel sounds and soft. Nontender. Nondistended. Obese Extremities--right lower extremity with 1+ pretibial and pedal pitting edema. Normal pedal pulses bilaterally. Left lower extremity is without edema Dermatologic--right lower extremity with dark red central area, surrounding leak gang supervisor red area, with significant warmth. There is tracking medially from the upper calf palpable lymph node left lower extremity is normal. Neurologic--cranial nerves II through XII grossly intact. Psychiatric--normal affect, mood congruent. Results & Data Results & Data Vital Signs (Past 12 Hours) Vital Signs Temp Pulse Resp BP Pulse Ox O2 Del Method 05/22/24 07:03 65 15 96 05/22/24 07:00 145/85 H 05/22/24 06:57 60 18 94 05/22/24 06:34 134/83 05/22/24 06:33 65 20 05/22/24 06:03 70 24 94 05/22/24 05:30 68 18 143/86 H 96 05/22/24 05:15 71 17 140/97 96 05/22/24 04:44 70 05/22/24 04:42 72 20 128/86 96 05/22/24 02:48 36.8 C 86 18 153/96 H 95 Room Air Resident Activity Tracking Resident Involvement: Resident Care Provided Care Provided: Adult Hospital Medicine
[2024-05-22] MEDS ORDERED: ONDANSETRON INJ 2 MG/ML 2 ML VIAL IV PRN (08:46)
[2024-05-22] MEDS ORDERED: NITROGLYCERIN SL 0.4 MG/TAB TAB SL PRN (08:46)
--- NOTE | 2024-05-22 08:59 | Pharmacy Report ---
Pharmacy PK ABX Note - Date of Service May 22, 2024 - Assessment and Plan Assessment 44 year old M receiving vancomycin and zosyn for treatment of RLE cellulitis w/ ascending lymphangitis. Blood culture pending. Renal function stable. Day #1 of antimicrobial therapy. Plan Vancomycin * Loading dose: 2500 mg IV x 1 * Maintenance dose: 1250 mg IV every 8 hours * Regimen is predicted to achieve target AUC/ISABEL of 400-600 mg/L.hr * Trough tomorrow AM Pharmacy will continue to follow and will adjust dose/frequency as necessary. Thank you. Pharmacy has transitioned to AUC monitoring for vancomycin. AUC/ISABEL is the preferred PK/PD target and is associated with decreased risk of nephrotoxicity compared to traditional trough targets.
--- NOTE | 2024-05-22 09:21 | Cardiology Consultation ---
Date of Consultation May 22, 2024 Assessment & Plan (1) Non-ST elevation (NSTEMI) myocardial infarction: (2) HTN (hypertension): (3) HLD (hyperlipidemia): (4) Elevated troponin: Plan ASSESSMENT/PLAN: 1. NSTEMI: Has intermittent chest discomfort, including at rest. Given risk factors, elevated high-sensitivity troponin, and recurrent symptoms that preceded his current infection by approximately 10 days, recommend ischemic evaluation. We discussed coronary angiography. Risk and benefits were discussed in detail. He was made aware that CT surgery is not available at this facility. He was agreeable to proceed. It is currently not urgent. If he has ongoing constant chest pain, it can be done urgently, otherwise recommend that he continue with antibiotic therapy. Await blood culture results. Start isosorbide mononitrate 30 mg daily. Start low-dose beta-pa. Recommend aspirin 325 mg x 1 and then 81 mg daily. Continue heparin drip. 2. Cellulitis: Awaiting blood cultures. Antibiotics as per primary service. Has been evaluated by infectious disease. No obvious indication for transesophageal echo at this time. No visualized vegetation on transthoracic echo. 3. Hypertension: Can continue home antihypertensive regimen. Initiating antianginals as above. 4. Dyslipidemia: Recommend statin therapy for now while awaiting determination of ischemic heart disease. 5. Disposition: Cardiology will continue to follow. Plan of care communicated with primary hospitalist, Dr. Maynard. Thank you for allowing me to participate in the care of your patient. Please call for any other questions or concerns. Sincerely, Constantine Kan M.D. History of Present Illness Reason for Consultation: "elevated trop, ? endocarditis, febrile, RLE cell" Requesting Physician: Chi Saldana MD Attending Physician: Chi Saldana MD History of Present Illness Mr. Crisostomo is a very pleasant 44-year-old gentleman with a history significant for hypertension, dyslipidemia, and unprovoked pulmonary embolism (January 2024). He was admitted on 05/22/2024 after presenting with right leg pain and erythema. On 05/19/2024, he had a fever and right leg pain. The following day, he had erythema noted in his right lower extremity. His leg has been swollen compared to the left. He also has been experiencing left-sided chest pain for the past 10 days described as "ache" without radiation, diaphoresis, or shortness of breath. There is no specific trigger for the pain and it typically last 30 seconds or so before resolving. It has been intermittently occurring even while here. He had unremarkable stress echo on 05/18/2023. He has had dyspnea on exertion with more strenuous activities,. He is active and enjoys hunting but no dedicated exercise. He has chronic lower extremity edema near the end of the day but it typically resolves overnight. The right lower extremity edema has worsened with his current cellulitis. He denies melena, hematochezia, or hematuria. He has been seen by hematology with plans on retesting in the future with hematology. He was chest pain free during her visit today. Review of systems: As above. Family history: No known premature CAD. Grandfather had pacemaker. Social history: He quit smoking in approximately 2016 after approximately 5 pack years. Occasional alcohol. He lives at home with his significant other, Enid Katielulu, and there 10-year-old daughter (Catia). Enid is a nurse for [employer], Dr. Olivas. 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 Enid was present at the bedside. Allergies Allergy/AdvReac Type Severity Reaction Status Date / Time No Known Allergies Allergy Verified 05/22/24 16:54 Home Medications Medication Instructions Recorded Confirmed Type loratadine 10 mg tablet (Allergy 10 mg PO DAILY 02/11/21 05/22/24 History Relief (loratadine)) cholecalciferol (vitamin D3) 25 2,000 unit PO DAILY 02/09/24 05/22/24 History mcg (1,000 unit) capsule lisinopril 20 1 tab PO DAILY #90 tabs 03/13/24 05/22/24 Rx mg-hydrochlorothiazide 12.5 mg tablet doxycycline hyclate 100 mg tablet 100 mg PO BID #14 tabs 05/21/24 05/22/24 Rx apixaban 5 mg tablet (Eliquis) 5 mg PO BID 05/22/24 05/22/24 History Problem List (Updated 02/11/21 @ 12:54 by Enid Cueto MA) Non-ST elevation (NSTEMI) myocardial infarction History of pulmonary embolism Elevated troponin Cellulitis of right lower extremity Chronic anticoagulation Hypomagnesemia Hypokalemia Elevated troponin Lymphangitis of lower extremity Cellulitis of right lower extremity from knee to ankle Pulmonary embolism Diagnosed 01/2024 Seasonal allergies Vitamin D deficiency HLD (hyperlipidemia) HTN (hypertension) H/O wisdom tooth extraction Hx of tonsillectomy Patient History Family History (Updated 02/11/21 @ 08:05 by Enid Cueto MA) Mother Lung cancer Heart disease afib Hypertension Father Dyslipidemia Hypertension Grandfather (Paternal) Heart disease Grandmother (Maternal) Lung cancer Social History (Updated 02/11/21 @ 08:07 by Enid Cueto MA) Smoking Status: Never smoker Age Quit Using Tobacco: 33; Second Hand Exposure: No; Do You Dip or Chew Tobacco: Yes; Hx Alcohol Use: No Hx Substance Use: Yes Last Used Substance: Days (ago) Substance Use Type Other:: medical Preferred Language: Slovak 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 Alert and oriented. HEENT: Anicteric sclera. Neck: No JVD. No bruits. Normal carotid upstrokes bilaterally. Cardiac: Regular. Normal S1-S2. No murmurs, rubs, or gallops. Pulmonary: Clear to auscultation bilaterally without wheezes, rales, or rhonchi. Abdomen: Soft, nontender, nondistended, with normoactive bowel sounds. No bruits noted. Extremities: 2+ radial pulses bilaterally. 2+ posterior tibialis pulses bilaterally. No cyanosis. Right leg is swollen compared to the left with trace to 1+ pitting edema. Distal right lower extremity is erythematous and warm to touch. There is pink streaking along the medial aspect of the proximal right lower extremity. Psychiatric: Affect appears appropriate. Chest: Nontender to palpation. Results & Data Vital Signs (Past 12 Hours) Vital Signs Temp Pulse Resp BP BP Pulse Ox O2 Del Method 05/22/24 08:28 36.4 C 96 H 153/96 H 93 Room Air 05/22/24 07:03 65 15 96 05/22/24 07:00 145/85 H 05/22/24 06:57 60 18 94 05/22/24 06:34 134/83 05/22/24 06:33 65 20 05/22/24 06:03 70 24 94 05/22/24 05:30 68 18 143/86 H 96 05/22/24 05:15 71 17 140/97 96 05/22/24 04:44 70 05/22/24 04:42 72 20 128/86 96 05/22/24 02:48 36.8 C 86 18 153/96 H 95 Room Air Laboratory Results Laboratory Results - last 24 hr 05/22/24 05/22/24 03:40 05:32 WBC 11.20 H RBC 5.27 Hgb 15.9 Hct 45.1 MCV 85.6 MCH 30.2 MCHC 35.3 RDW Std Deviation 40.3 RDW Coeff of Lou 13.0 Plt Count 245 MPV 9.3 L Immature Gran % (Auto) 0.6 Neut % (Auto) 75.8 Lymph % (Auto) 13.3 [place] % (Auto) 9.4 Eos % (Auto) 0.5 Baso % (Auto) 0.4 Neut # (Auto) 8.48 H Lymph # (Auto) 1.49 [place] # (Auto) 1.05 H Eos # (Auto) 0.06 Baso # (Auto) 0.05 Immature Gran # (Auto) 0.07 PT 11.4 INR 1.1 APTT 30 PTT Ratio 1.1 Sodium 137 Potassium 3.3 L Chloride 101 Carbon Dioxide 26 Anion Gap 10 BUN 16 Creatinine 0.74 Est Cr Clr Drug Dosing 181.8 eGFR 114.58 BUN/Creatinine Ratio 21.6 H Glucose 125 H Lactate 0.9 Calcium 8.5 L Magnesium 1.8 Total Bilirubin 0.7 AST 29 ALT 30 Alkaline Phosphatase 55 Troponin I High Sens 682.5 H* 740.2 H* Total Protein 7.3 Albumin 3.8 Globulin 3.5 Albumin/Globulin Ratio 1.1 Lyme Disease Screen Negative Diagnostic Findings ECG personally reviewed: ECG 810 4 3:33 AM: Sinus rhythm 70 bpm. ECG 05/22/2024 at 4:39 AM: NSR 68 bpm. Nonspecific T wave abnormality. Labs reviewed and notable for elevated high-sensitivity troponin, mild hypokalemia, normal renal function, normal transaminase levels, normal magnesium, mild leukocytosis, normal hemoglobin. CTA chest 05/22/2024: No PE per radiology. Right lower extremity venous ultrasound 05/22/2024: No DVT. Echo 02/11/2024 [facility]: Normal LV size, wall motion, systolic function. EF 55-60%. Mild LVH. Normal RV size and systolic function. No significant valvular abnormalities. Stress echo 05/18/2023 [facility]: No ischemic changes noted at 84% MPHR. No chest pain. 7 minutes 16 seconds Umang protocol. Resting EF 60 to 65%. Normal wall motion. Moderate LVH. No significant valvular abnormalities. History and physical report reviewed. Telemetry personally reviewed: Sinus rhythm. No arrhythmia. Oncology/hematology report reviewed from 02/24/2024. ECHO 05/22/2024: 1. Normal left ventricular size with low normal systolic function. EF 50%. No regional wall motion abnormalities. Moderate concentric left ventricular hypertrophy. 2. Mildly dilated right ventricle with normal systolic function. 3. No significant valvular abnormalities. 4. Normal estimated right ventricular systolic pressure. 5. Technically difficult study, enhanced with IV Definity. 6. Compared to prior study on 02/11/2024, LV systolic function is now low normal. Medications Administered Current Inpatient Medications Piperacillin Sod/Tazobactam Sod (Zosyn) 4.5 gm in 100 mls @ 25 mls/hr IV Q8H [facility]; Protocol Stop: 05/29/24 11:59 Acetaminophen (Ofirmev) 1,000 mg in 100 mls @ 400 mls/hr IV Q8H PRN PRN Reason: Pain or Fever Stop: 05/25/24 05:36 Heparin Sodium/Dextrose (Heparin Sodium/Dextrose) 25,000 units in 500 mls @ 20 mls/hr IV .Q24H KRISTINA; Protocol Stop: 06/21/24 06:44 Last Admin: 05/22/24 07:08 Dose: 1,000 units/hr, 20 mls/hr Potassium Chloride/Sodium Chloride (Normal Saline W/20 Meq Kcl) 20 meq in 1,000 mls @ 80 mls/hr IV .[id number] STA Stop: 05/22/24 18:23 Last Admin: 05/22/24 07:20 Dose: 80 mls/hr Vancomycin HCl 1,250 mg/ (Dextrose) 275 mls @ 200 mls/hr IV Q8H KRISTINA Stop: 05/29/24 15:59 Miscellaneous Information (Vancomycin Consult Active) 1 each N/A UD PRN PRN Reason: Consult Stop: 06/21/24 05:35 Nitroglycerin (Nitroglycerin Sl 0.4 Mg/Tab Tab) 0.4 mg SL Q5M PRN PRN Reason: Chest Pain Stop: 06/21/24 08:45 Ondansetron HCl (Ondansetron Inj 2 Mg/Ml 2 Ml Vial) 4 mg IV Q6H PRN PRN Reason: Nausea Stop: 06/21/24 08:45 PG Care Time/CCT Total # of Minutes Spent Total Time Spent with Patient: Total time spent is greater than 50% in coordination of care (as documented) at patient's floor/unit and/or counseling patient: Coding Level of Care Code 71466 IN/OBS CONSULT LVL 5,80M Diagnoses Non-ST elevation (NSTEMI) myocardial infarction I21.4 HTN (hypertension) I10 HLD (hyperlipidemia) E78.5 Elevated troponin R79.89
--- NOTE | 2024-05-22 09:40 | Infectious Disease Consult ---
Date of Consultation May 22, 2024 Assessment & Plan (1) Cellulitis of right lower extremity: (2) Elevated troponin: (3) History of pulmonary embolism: Plan 44yo M with h/o PE dx 01/2024 on eliquis, vitamin D deficiency, HTN, HLD who presented on 05/22 with intermittent left sided chest pain and right leg swelling, redness, and pain x 3-4 days. Here he has been afebrile, vss. Initial labs with WBC 11.20, Cr 0.74, LFT wnl. Lactate negative. High troponin. Lyme screen negative. Venous doppler negative for DVT in RLE. CTA chest negative for PE. He was started on vancomycin and zosyn. ID consulted 05/22 for assistance. ECHO done, no valvular abnormalities, technically difficult. Significant erythema of RLE with some redness also noted on inner thigh. Will keep on broad coverage for now and de-escalate pending further data. No open lesions noted. I dont appreciate a murmur on examination, and ECHO is negative for valvular lesions. I did add another set of BCX for better yield. Will also check MRSA. # RLE cellulitis # Elevated troponin, chest pain # h/o PE - Marian ordered another set of BCX since only 1 set was sent from admission - Marian ordered mrsa screen - f/u cx - will continue broad coverage for now with vancomycin and zosyn de-escalate pending above data ID will continue to follow. If questions or concerns, contact Infectious Disease Call Center . Fernanda Young MD [facility], Division of Infectious Diseases [facility]: [phone] Consultation Information Consultation was provided via telemedicine using two-way real-time interactive telecommunication between the patient and the telemedicine provider. For the duration of the visit, the provider was performing the assessment from a different facility than the patient. This includesuse of bluetooth stethoscope forauscultationperformed by the telepresenter that the telemedicine provider can hear if described in the physical exam. Rectification Printer contact information: Please call [facility] Call Center . (Phone Number For Physician Use Only) After establishing a telemedicine visit, patient was: Patient was verified with two unique identifiers, Patient/authorized rep acknowledged consent and understanding and Gave permission to continue telehealth session Time Spent with Patient: Initial => 75 min History of Present Illness Reason for Consultation: RLE cell/lymp, elevated trop, ?endocarditis Attending Physician: Chi Saldana MD History of Present Illness 44yo M with h/o PE dx 01/2024 on eliquis, vitamin D deficiency, HTN, HLD who presented on 05/22 with intermittent left sided chest pain and right leg swelling, redness, and pain. He says that he started feeling unwell on Wednesday and then felt run down on Wednesday. He had high fevers and right leg felt red and hot. On Wednesday, he felt better, but did notice occasional chest pains at rest while watching TV. That night, hi had sweats and fever with RLE pain so came to the ED. He denies having any joint pains, no new back pain, abdominal pain, n/v/d, or shortness of breath. He sees a chiropractor for maintenance. Here he has been afebrile, vss. Initial labs with WBC 11.20, Cr 0.74, LFT wnl. Lactate negative. High troponin. Lyme screen negative. Venous doppler negative for DVT in RLE. CTA chest negative for PE. He was started on vancomycin and zosyn. ID consulted 05/22 for assistance. ECHO done, no valvular abnormalities, technically difficult. Allergies Allergy/AdvReac Type Severity Reaction Status Date / Time No Known Allergies Allergy Verified 02/09/24 12:29 Home Medications Medication Instructions Recorded Confirmed Type loratadine 10 mg tablet (Allergy 10 mg PO DAILY 02/11/21 02/09/24 History Relief (loratadine)) cholecalciferol (vitamin D3) 25 2,000 unit PO DAILY 02/09/24 02/09/24 History mcg (1,000 unit) capsule apixaban 5 mg (74 tabs) tablets in 5 mg PO BID #180 ea 03/02/24 Rx a dose pack (Eliquis) lisinopril 20 1 tab PO DAILY #90 tabs 03/13/24 Rx mg-hydrochlorothiazide 12.5 mg tablet doxycycline hyclate 100 mg tablet 100 mg PO BID #14 tabs 05/21/24 Rx Patient History Family History (Updated 02/11/21 @ 08:05 by Enid Cueto MA) Mother Lung cancer Heart disease afib Hypertension Father Dyslipidemia Hypertension Grandfather (Paternal) Heart disease Grandmother (Maternal) Lung cancer Social History (Updated 02/11/21 @ 08:07 by Enid Cueto MA) Smoking Status: Never smoker Age Quit Using Tobacco: 33; Second Hand Exposure: No; Do You Dip or Chew Tobacco: Yes; Hx Alcohol Use: No Hx Substance Use: Yes Last Used Substance: Days (ago) Substance Use Type Other:: medical Preferred Language: Mongolian 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 Physical Exam Physical Exam: General: Awake, alert, no acute distress HEENT: NC/AT, EOMI, mmm Neck: supple Lungs: CTA bl, no w/c/r Heart: regular, nl S1/S2, no appreciable murmurs Abdomen: soft, NT/ND Back: no spinal tenderness Ext: RLE with circumferential erythema of lower leg, some redness as well of inner thigh Skin: as above Neuro: moving all extremities Results & Data Vital Signs (Past 12 Hours) Vital Signs Temp Pulse Resp BP BP Pulse Ox O2 Del Method 05/22/24 08:28 36.4 C 96 H 153/96 H 93 Room Air 05/22/24 07:03 65 15 96 05/22/24 07:00 145/85 H 05/22/24 06:57 60 18 94 05/22/24 06:34 134/83 05/22/24 06:33 65 20 05/22/24 06:03 70 24 94 05/22/24 05:30 68 18 143/86 H 96 05/22/24 05:15 71 17 140/97 96 05/22/24 04:44 70 05/22/24 04:42 72 20 128/86 96 05/22/24 02:48 36.8 C 86 18 153/96 H 95 Room Air Laboratory Results Labs reviewed. Diagnostic Findings Imaging reviewed.
--- NOTE | 2024-05-22 10:47 | XCELERA ---
[id number]
[2024-05-22] MEDS: PIPERACILLIN/TAZOBACTAM 4.5 GM/100 ML BAG IV SCH (11:29)
[2024-05-22 13:36] LABS: ANTI-Xa, UFH(UnfractionatedHep 0.32 IU/ml (0.3-0.7)
[2024-05-22] MEDS: VANCOMYCIN 1,250mg in D5W 250mL (Use w/ NSS Shortage) IV SCH (15:18)
[2024-05-22] MEDS: ISOSORBIDE MONO EXTENDED REL 30 MG TABCR PO SCH (17:00)
[2024-05-22] MEDS: ASPIRIN 325 MG ECTAB PO ONE (17:56)
[2024-05-22] MEDS ORDERED: MELATONIN 3 MG TAB PO PRN (18:08)
[2024-05-22] MEDS: ACETAMINOPHEN 500 MG TAB PO PRN (20:03)
[2024-05-22] MEDS: METOPROLOL TARTRATE 25 MG TAB PO SCH (20:49)
--- NOTE | 2024-05-23 06:11 | Electrocardiogram Report ---
Test Reason : Blood Pressure : */* mmHG Vent. Rate : 70 BPM Atrial Rate : 70 BPM P-R Int : 168 ms QRS Dur : 90 ms QT Int : 392 ms P-R-T Axes : 50 -3 38 degrees QTcB Int : 423 ms Normal sinus rhythm Normal ECG No previous ECGs available Confirmed by Sandeep Kan ([id number]) on 05/23/2024 6:11:29 AM Referred By: Confirmed By: Sandeep Kan
--- NOTE | 2024-05-23 06:12 | Electrocardiogram Report ---
Test Reason : Blood Pressure : */* mmHG Vent. Rate : 68 BPM Atrial Rate : 68 BPM P-R Int : 182 ms QRS Dur : 82 ms QT Int : 400 ms P-R-T Axes : 45 13 50 degrees QTcB Int : 425 ms Normal sinus rhythm Nonspecific T wave abnormality Abnormal ECG When compared with ECG of 22-May-2024 03:33, No significant change was found Confirmed by Sandeep Kan ([id number]) on 05/23/2024 6:11:46 AM Referred By: Confirmed By: Sandeep Kan
[2024-05-23 06:53] LABS: Basophils # (auto) 0.04 K/uL (0.00-0.20); Basophils % (auto) 0.5 %; Eosinophils % (auto) 2.7 %; Hematocrit (blood only) 41.5 % (42.0-52.0); Hemoglobin 14.7 g/dl (14.0-18.0); Immature Granulocytes # (auto) 0.04 K/uL (0.01-0.20); Immature Granulocytes % (auto) 0.5 %; Lymphocytes # (auto) 1.63 K/uL (1.20-3.40); Lymphocytes % (auto) 21.9 %; Mean Corpuscular Hemoglobin 30.6 pg (25.0-34.0); Mean Corpuscular Hgb Conc 35.4 g/dL (32.0-36.0); Mean Corpuscular Volume 86.5 fL (80.0-100.0); Mean Platelet Volume 9.1 fL (9.4-12.4); Monocytes # (auto) 0.82 K/uL (0.11-0.59); Neutrophils # (auto) 4.71 K/uL (1.40-6.50); Neutrophils % (auto) 63.4 %; Platelet Count 252 K/uL (130-400); RDW Coefficient of Variation 12.9 % (11.5-14.5); RDW Standard Deviation 40.8 fL (36.4-46.3); White Blood Count 7.44 K/ul (4.8-10.8)
--- NOTE | 2024-05-23 06:57 | Hospitalist Progress Note ---
Date of Service May 23, 2024 Assessment & Plan (1) Cellulitis of right lower extremity from knee to ankle: (2) Lymphangitis of lower extremity: (3) Elevated troponin: (4) Chronic anticoagulation: (5) Pulmonary embolism: (6) HLD (hyperlipidemia): (7) HTN (hypertension): (8) Hypokalemia: (9) Hypomagnesemia: Plan Cellulitis right lower extremity with ascending lymphangitis Right lower extremity DVT study is negative in ED on 05/21 and negative bilateral lower extremity Doppler on 02/08. Negative left lower extremity arterial Doppler on 02/11/2024. Follows with Dr. Childress, hematology with Bruce Aguilar. Placed on IV vancomycin and Zosyn in ED. Infectious disease recommended continued broad spectrum antibiotics, repeat blood culture and MRSA testing. MRSA is negative. - ID recommendations 05/24 Discontinue IV vancomycin and Zosyn Start IV ceftriaxone 2g q24h - IV Acetaminophen 1000mg q8h PRN for pain and fever - Blood culture obtained in ED resulted at 24 hours no growth, culture drawn 05/22 is pending - Continue to follow blood cultures Pulmonary embolism Involving small segmental to subsegmental pulmonary arteries with evidence of mild right ventricular strain noted on CTA PE protocol on 02/09/2024. Was started on Eliquis. Last dosing taken 6:30 PM last evening. Started on heparin drip low- dose in ED in preparation for procedures. - Continue heparin drip Elevated troponin/left-sided chest pain with mild dyspnea on exertion Serial troponin starting in ED- Troponin 682.5 with follow-up 740.2, 964 and final at 1430 was 807. EKG showed sinus at 70 bpm [address] no acute ST-T changes. CAD/NSTEMI vs endocarditis. The patient admitted to telemetry for cardiac rhythm monitoring and a 2-D echocardiogram with doppler. Cardiology recommended starting beta pa, isosorbide mononitrate, and aspirin. Coranry angiography maybe needed in future, but planned to await results from blood cultures. - Continue isosorbide mononitrate 30 mg qam - Continue metoprolol 25 mg qam - Continue Aspirin 81m - Planning coronary angiography for AM NPO after midnight Electrolyte disturbances/hypokalemia/hypomagnesemia Pt hypokalemic and hypomagnesemic at admission possibly due to lisinopril/HCTZ. Electrolytes repleted on 05/22.Electrolytes normal on AM labs on 05/23. - Continue to monitor with AM labs - Holding lisinopril/HCTZ Admission and Anticipated Discharge Date Admission Date: May 22, 2024 Supervising Physician Co-Signing Physician Notes I personally examined the patient and verified all hayward points of history and exam, discussed case, and agree with decision making with Dr Gloria leg feeling better for [facility] tomorrow vitals noted nad RLE redness resolving nicely LE cellulitis - abx now narrowed to ceftriaxone CP/NSTEMI - for [facility] tomorrow anticoagulated chronically (currently on heparin gtt to allow for reversibility if needed for procedures) otherwise as above Subjective Pt is a 44 yo male with history of PE, HTN, and HLD. Presented to ED with right leg swelling, discoloration and pain. CTA negative for PE, LE doppler negative for DVT. Presumable cellulitis and started on IV Vancomycin and Zosyn. This morning, pt reports he leg pain is better and heat at upper leg has decreased. He is no longer having left sided chest pain. He denies dizziness, SOB, or radiation of pain. Pt denies nausea, vomiting, diarrhea, constipation, numbness/tingling, weakness. Pt has a headache and back ache this morning that he believes is due the hospital bed. Review of Systems Review of Systems: As per HPI Physical Exam Physical Exam: The patient is awake, alert and oriented 3, well developed and well nourished, normocephalic and atraumatic, lying in bed and in no acute distress. HEENT--PERRL, EOMI, mucous membranes and oropharynx normal Neck--supple. No JVD. No bruits. Thyroid normal, trachea midline, no adenopathy. Heart--normal S1 and S2. No murmurs, rubs or gallops. Lungs--clear bilaterally, no respiratory distress, no accessory muscle use. Abdomen--normal bowel sounds and soft. Nontender. Nondistended. Extremities--right lower extremity with trace pretibial and pedal pitting edema. Normal pedal pulses bilaterally. 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 Medial right thigh continue with erythematous streak tracking toward inguinal lymph nodes, less warmth of skin. Neurologic--cranial nerves II through XII grossly intact. Psychiatric--normal affect, mood congruent. Results & Data Results & Data Vital Signs (Past 12 Hours) Vital Signs Temp Pulse Pulse Resp BP Pulse Ox O2 Del Method 05/23/24 04:02 36.7 C 62 18 128/82 96 Room Air 05/22/24 22:58 36.6 C 64 18 126/69 96 Room Air 05/22/24 22:20 54 L 05/22/24 19:13 36.8 C 68 16 114/73 97 Room Air Resident Activity Tracking Resident Involvement: Resident Care Provided Care Provided: Adult Hospital Medicine
[2024-05-23 07:12] LABS: Albumin Globulin Ratio 1.1 (0.9-2); Albumin Level 3.3 gm/dl (3.4-5.0); Bilirubin,Total 0.7 mg/dl (0.2-1.0); Calcium 8.1 mg/dl (8.6-10.3); Creatinine Clr Calc Pharmacy 180.9 ml/min; Potassium 3.7 mmol/L (3.5-5.1); Total Protein 6.3 gm/dl (6.0-8.3)
[2024-05-23 07:23] LABS: ANTI-Xa, UFH(UnfractionatedHep 0.16 IU/ml (0.3-0.7); Partial Thromboplastin Ratio 1.1; Partial Thromboplastin Time 29 Seconds (21-31)
[2024-05-23] MEDS ORDERED: HEPARIN SOD (PORCINE) 1000 UNIT/ML IV ONE (07:39)
[2024-05-23] MEDS: HEPARIN IV BOLUS 4,000 UNITS in SYRINGE 0 ML IV ONE (08:09)
[2024-05-23] MEDS: VANCOMYCIN HCL 2,000 MG in SODIUM CHLORIDE 0.9% 500 ML IV SCH (08:15)
[2024-05-23] MEDS: ASPIRIN 81 MG ECTAB PO SCH (08:17)
[2024-05-23] MEDS: VANCOMYCIN LEVEL ONE (08:17)
--- NOTE | 2024-05-23 09:33 | Cardiology Progress Note ---
Date of Service May 23, 2024 Assessment & Plan (1) Non-ST elevation (NSTEMI) myocardial infarction: (2) HTN (hypertension): (3) HLD (hyperlipidemia): (4) Elevated troponin: Plan ASSESSMENT/PLAN: 1. NSTEMI: Has intermittent chest discomfort, including at rest, which has resolved following nitrate therapy and beta-pa. Given risk factors, elevated high-sensitivity troponin, and recurrent symptoms that preceded his current infection by approximately 10 days, recommend ischemic evaluation. Coronary angiography tentatively scheduled for 05/24/2024. Continue aspirin 81 mg daily. Continue heparin drip. 2. Cellulitis: Blood cultures negative so far. Antibiotics as per primary service/infectious disease. 3. Hypertension: Mildly hypertensive. Can resume home NEELAM inhibitor. 4. Dyslipidemia: High intensity statin therapy recommended if he has CAD. 5. Disposition: Cardiology will continue to follow. Plan of care communicated with primary hospitalist, Dr. Maynard. Admission and Anticipated Discharge Date Admission Date: May 22, 2024 Subjective Patient seen earlier this morning. He has not had any further chest discomfort after initiation of beta-pa and nitrate therapy. He believes that his lower extremity swelling has improved. He notes improvement of the erythema and also the pain of his lower extremity with cellulitis. He admits that he has had a low-grade headache for the past several days but also has not been able to use his medical marijuana over this time period. His significant other was present at the bedside. Physical Exam Physical Exam: Gen.: No acute distress. Alert and oriented. HEENT: Anicteric sclera. Neck: No JVD. Cardiac: Regular. Normal S1-S2. No murmurs, rubs, or gallops. Pulmonary: Clear to auscultation bilaterally without wheezes, rales, or rhonchi. Abdomen: Soft, nontender, nondistended, with normoactive bowel sounds. No bruits noted. Extremities: 2+ radial pulses bilaterally. 2+ posterior tibialis pulses bilaterally. No cyanosis. Right leg is swollen compared to the left with 1+ pitting edema. Distal right lower extremity is erythematous (improved). Psychiatric: Affect appears appropriate. Results & Data Vital Signs (Past 12 Hours) Vital Signs Temp Pulse Pulse Resp BP Pulse Ox O2 Del Method 05/23/24 07:30 36.6 C 88 18 149/64 H 05/23/24 04:02 36.7 C 62 18 128/82 96 Room Air 05/22/24 22:58 36.6 C 64 18 126/69 96 Room Air 05/22/24 22:20 54 L Laboratory Results Laboratory Results - last 24 hr 05/22/24 05/22/24 05/22/24 09:58 10:50 12:47 WBC RBC Hgb Hct MCV MCH MCHC RDW Std Deviation RDW Coeff of Lou Plt Count MPV Immature Gran % (Auto) Neut % (Auto) Lymph % (Auto) [place] % (Auto) Eos % (Auto) Baso % (Auto) Neut # (Auto) Lymph # (Auto) [place] # (Auto) Eos # (Auto) Baso # (Auto) Immature Gran # (Auto) APTT PTT Ratio Heparin Anti-Xa, Unfract 0.32 Sodium Potassium Chloride Carbon Dioxide Anion Gap BUN Creatinine Est Cr Clr Drug Dosing eGFR BUN/Creatinine Ratio Glucose Calcium Magnesium Total Bilirubin AST ALT Alkaline Phosphatase Troponin I High Sens 964.8 H* D Total Protein Albumin Globulin Albumin/Globulin Ratio Nasal Screen MRSA (PCR) Negative Random Vancomycin 05/22/24 05/23/24 14:24 06:39 WBC 7.44 RBC 4.80 Hgb 14.7 Hct 41.5 L MCV 86.5 MCH 30.6 MCHC 35.4 RDW Std Deviation 40.8 RDW Coeff of Lou 12.9 Plt Count 252 MPV 9.1 L Immature Gran % (Auto) 0.5 Neut % (Auto) 63.4 Lymph % (Auto) 21.9 [place] % (Auto) 11.0 Eos % (Auto) 2.7 Baso % (Auto) 0.5 Neut # (Auto) 4.71 Lymph # (Auto) 1.63 [place] # (Auto) 0.82 H Eos # (Auto) 0.20 Baso # (Auto) 0.04 Immature Gran # (Auto) 0.04 APTT 29 PTT Ratio 1.1 Heparin Anti-Xa, Unfract 0.16 L Sodium 139 Potassium 3.7 Chloride 106 Carbon Dioxide 26 Anion Gap 7 BUN 12 Creatinine 0.75 Est Cr Clr Drug Dosing 180.9 eGFR 114.12 BUN/Creatinine Ratio 16.0 Glucose 104 H Calcium 8.1 L Magnesium 2.0 Total Bilirubin 0.7 AST 32 ALT 36 Alkaline Phosphatase 46 Troponin I High Sens 807.5 H* Total Protein 6.3 Albumin 3.3 L Globulin 3.0 Albumin/Globulin Ratio 1.1 Nasal Screen MRSA (PCR) Random Vancomycin 8.9 L Diagnostic Findings Labs reviewed and notable for normal renal function, normal potassium, resolved leukocytosis, normal hemoglobin, normal transaminase levels. Normal magnesium. Blood culture from 05/22/2024 negative x 1 day. Telemetry personally reviewed: Sinus rhythm in the 50s to 60s. No arrhythmia. Medications Administered Current Inpatient Medications Acetaminophen (Acetaminophen 500 Mg Tab) 1,000 mg PO Q8H PRN PRN Reason: Pain or Fever Stop: 06/21/24 19:47 Last Admin: 05/22/24 20:03 Dose: 1,000 mg Aspirin (Aspirin 81 Mg Ectab) 81 mg PO [facility] Stop: 06/22/24 08:59 Last Admin: 05/23/24 08:17 Dose: 81 mg Cyanocobalamin (Cyanocobalamin (B-12) 500 Mcg Tablet) 1,000 mcg PO [facility] Stop: 06/22/24 08:59 Piperacillin Sod/Tazobactam Sod (Zosyn) 4.5 gm in 100 mls @ 25 mls/hr IV Q8H [facility]; Protocol Stop: 05/29/24 11:59 Last Infusion: 05/23/24 07:56 Dose: Infused Heparin Sodium/Dextrose (Heparin Sodium/Dextrose) 25,000 units in 500 mls @ 24 mls/hr IV .[id number] [facility]; Protocol Stop: 06/21/24 06:44 Last Admin: 05/23/24 07:54 Dose: 1,200 units/hr, 24 mls/hr Vancomycin HCl 2,000 mg/ (Sodium Chloride) 540 mls @ 200 mls/hr IV Q12H [facility] Stop: 05/29/24 23:59 Last Admin: 05/23/24 08:15 Dose: 200 mls/hr Isosorbide Mononitrate (Isosorbide [place] Extended Rel 30 Mg Tabcr) 30 mg PO [facility] Stop: 06/21/24 16:29 Last Admin: 05/23/24 08:16 Dose: 30 mg Melatonin (Melatonin 3 Mg Tab) 6 mg PO HS PRN PRN Reason: Sleep Stop: 06/21/24 18:07 Metoprolol Tartrate (Metoprolol Tartrate 25 Mg Tab) 25 mg PO BID [facility] Stop: 06/21/24 20:59 Last Admin: 05/23/24 08:16 Dose: 25 mg Miscellaneous Information (Vancomycin Consult Active) 1 each N/A UD PRN PRN Reason: Consult Stop: 06/21/24 05:35 Nitroglycerin (Nitroglycerin Sl 0.4 Mg/Tab Tab) 0.4 mg SL Q5M PRN PRN Reason: Chest Pain Stop: 06/21/24 08:45 Ondansetron HCl (Ondansetron Inj 2 Mg/Ml 2 Ml Vial) 4 mg IV Q6H PRN PRN Reason: Nausea Stop: 06/21/24 08:45 PG Care Time/CCT Total # of Minutes Spent Total Time Spent with Patient: Total time spent is greater than 50% in coordination of care (as documented) at patient's floor/unit and/or counseling patient: Coding Level of Care Code 16636 SUB INP/OBS CARE 3/50MIN Diagnoses Non-ST elevation (NSTEMI) myocardial infarction I21.4 HTN (hypertension) I10 HLD (hyperlipidemia) E78.5 Elevated troponin R79.89
[2024-05-23] MEDS: HEPARIN SOD (PORCINE) 1000 UNIT/ML IV ONE ×2 (09:52→22:36)
[2024-05-23] MEDS: CYANOCOBALAMIN (B-12) 500 MCG TABLET PO SCH (11:05)
--- NOTE | 2024-05-23 13:54 | Infectious Disease Progress Nt ---
Date of Service May 23, 2024 Assessment & Plan (1) Cellulitis of right lower extremity: (2) Elevated troponin: (3) History of pulmonary embolism: Plan 44yo M with h/o PE dx 01/2024 on eliquis, vitamin D deficiency, HTN, HLD who presented on 05/22 with intermittent left sided chest pain and right leg swelling, redness, and pain x 3-4 days. Here he has been afebrile, vss. Initial labs with WBC 11.20, Cr 0.74, LFT wnl. Lactate negative. High troponin. Lyme screen negative. Venous doppler negative for DVT in RLE. CTA chest negative for PE. He was started on vancomycin and zosyn. ID consulted 05/22 for assistance. ECHO done, no valvular abnormalities, technically difficult. MRSA screen negative. Clinically improving on broad coverage. Improving erythema and swelling of RLE. I stopped vanc this morning since MRSA screen was negative. Given no risk factors for resistant organisms, will also de-escalate the zosyn to CTX today and monitor. # RLE cellulitis - improving # Elevated troponin, chest pain # h/o PE - f/u BCX - Marian stopped vancomycin and zosyn - Marian started CTX 2g IV q24h - if he continues to improve and negative BCx, he can be changed to PO regimen in the next day or so to complete a course of 7 days ID will continue to follow. If questions or concerns, contact via [facility] or Infectious Disease Call Center . Fernanda Young MD [facility], Division of Infectious Diseases [facility]: [phone] Admission and Anticipated Discharge Date Admission Date: May 22, 2024 Subjective Subsequent visit was provided via telemedicine using two-way real-time interactive telecommunication between the patient and the telemedicine provider. For the duration of the visit, the provider was performing the assessment from a different facility than the patient. This includesuse of bluetooth stethoscope forauscultationperformed by the telepresenter that the telemedicine provider can hear if described in the physical exam. Post Office Manager contact information: Please call [facility] Call Center [phone]. (Phone Number For Physician Use Only) After establishing a telemedicine visit, patient was: Patient was verified with two unique identifiers, Patient/authorized rep acknowledged consent and understanding and Gave permission to continue telehealth session Time Spent with Patient: Subsequent => 35 min Patient feeling well today. Leg also feels better. Reports some headaches. No abdominal pain, diarrhea, vomiting, SOB, chest pain. Physical Exam Physical Exam: General: Awake, alert, no acute distress HEENT: NC/AT, EOMI, mmm Neck: supple Lungs: respirations non-labored Ext: improved RLE edema, erythema improving Results & Data Vital Signs (Past 12 Hours) Vital Signs Temp Pulse Resp BP Pulse Ox O2 Del Method 05/23/24 11:00 36.5 C 68 18 151/94 H 05/23/24 07:30 36.6 C 88 18 149/64 H 05/23/24 04:02 36.7 C 62 18 128/82 96 Room Air Laboratory Results Labs reviewed.
[2024-05-23 15:15] LABS: ANTI-Xa, UFH(UnfractionatedHep 0.21 IU/ml (0.3-0.7)
[2024-05-23] MEDS: cefTRIAXone SODIUM 2,000 MG/50 ML BAG IV SCH (15:47)
--- NOTE | 2024-05-23 15:52 | Billing Data ---
Date of Service May 23, 2024 Coding Level of Care Code 63879 SUB INP/OBS CARE
[2024-05-23] MEDS: ALUMINUM/MAGNESIUM SUSP 30 ML UDC PO STA (21:07)
[2024-05-23] MEDS: KETOROLAC TROMETHAMINE 15 MG/ML VIAL IV ONE (21:08)
[2024-05-23 22:13] LABS: ANTI-Xa, UFH(UnfractionatedHep 0.19 IU/ml (0.3-0.7)
--- NOTE | 2024-05-23 23:01 | Electrocardiogram Report ---
Test Reason : Blood Pressure : */* mmHG Vent. Rate : 56 BPM Atrial Rate : 56 BPM P-R Int : 180 ms QRS Dur : 98 ms QT Int : 434 ms P-R-T Axes : 52 22 31 degrees QTcB Int : 418 ms Sinus bradycardia Otherwise normal ECG When compared with ECG of 22-May-2024 04:39, No significant change was found Confirmed by Sandeep Kan ([id number]) on 05/23/2024 11:01:00 PM Referred By: REFERRED SELF Confirmed By: Sandeep Kan
[2024-05-24 05:06] LABS: Basophils # (auto) 0.04 K/uL (0.00-0.20); Basophils % (auto) 0.5 %; Eosinophils # (auto) 0.13 K/uL (0.00-0.50); Eosinophils % (auto) 1.5 %; Hematocrit (blood only) 41.8 % (42.0-52.0); Hemoglobin 14.7 g/dl (14.0-18.0); Immature Granulocytes # (auto) 0.06 K/uL (0.01-0.20); Immature Granulocytes % (auto) 0.7 %; Lymphocytes # (auto) 1.97 K/uL (1.20-3.40); Lymphocytes % (auto) 22.5 %; Mean Corpuscular Hemoglobin 30.6 pg (25.0-34.0); Mean Corpuscular Hgb Conc 35.2 g/dL (32.0-36.0); Mean Corpuscular Volume 86.9 fL (80.0-100.0); Mean Platelet Volume 9.4 fL (9.4-12.4); Monocytes # (auto) 0.67 K/uL (0.11-0.59); Monocytes % (auto) 7.6 %; Neutrophils % (auto) 67.2 %; Platelet Count 288 K/uL (130-400); RDW Coefficient of Variation 12.7 % (11.5-14.5); RDW Standard Deviation 40.4 fL (36.4-46.3); Red Blood Count 4.81 M/uL (4.70-6.10); White Blood Count 8.77 K/ul (4.8-10.8)
[2024-05-24 05:19] LABS: BUN Creatinine Ratio 16.9 (10-20); Calcium 8.6 mg/dl (8.6-10.3); Creatinine Clr Calc Pharmacy 176.2 ml/min; Potassium 3.5 mmol/L (3.5-5.1)
[2024-05-24 05:31] LABS: ANTI-Xa, UFH(UnfractionatedHep 0.24 IU/ml (0.3-0.7); Partial Thromboplastin Ratio 1.2; Partial Thromboplastin Time 32 Seconds (21-31)
[2024-05-24] MEDS: FAMOTIDINE 20MG IV PUSH 20 MG/5 ML SYR IV STA (06:29)
--- NOTE | 2024-05-24 07:01 | Hospitalist Progress Note ---
Date of Service May 24, 2024 Assessment & Plan (1) Cellulitis of right lower extremity from knee to ankle: (2) Lymphangitis of lower extremity: (3) Elevated troponin: (4) Chronic anticoagulation: (5) Pulmonary embolism: (6) HLD (hyperlipidemia): (7) HTN (hypertension): (8) Hypokalemia: (9) Hypomagnesemia: Plan Cellulitis right lower extremity with ascending lymphangitis Right lower extremity DVT study is negative in ED on 05/21 and negative bilateral lower extremity Doppler on 02/08. Negative left lower extremity arterial Doppler on 02/11/2024. Follows with Dr. Childress, hematology with Bruce Aguilar. Placed on IV vancomycin and Zosyn in ED. Infectious disease recommended continued broad spectrum antibiotics, repeat blood culture and MRSA testing. MRSA is negative. - ID recommendations 05/24 Discontinue IV vancomycin and Zosyn Start IV ceftriaxone 2g q24h - IV Acetaminophen 1000mg q8h PRN for pain and fever - Blood culture obtained in ED resulted at 24 hours no growth, culture drawn 05/22 is pending - Continue to follow blood cultures Pulmonary embolism Involving small segmental to subsegmental pulmonary arteries with evidence of mild right ventricular strain noted on CTA PE protocol on 02/09/2024. Was started on Eliquis. Last dosing taken 6:30 PM last evening. Started on heparin drip low- dose in ED in preparation for procedures. - Continue heparin drip Elevated troponin/left-sided chest pain with mild dyspnea on exertion Serial troponin starting in ED- Troponin 682.5 with follow-up 740.2, 964 and final at 1430 was 807. EKG showed sinus at 70 [address]pm [address] no acute ST-T changes. CAD/NSTEMI vs endocarditis. The patient admitted to telemetry for cardiac rhythm monitoring and a 2-D echocardiogram with doppler. Cardiology recommended starting beta pa, isosorbide mononitrate, and aspirin. Coranry angiography maybe needed in future, but planned to await results from blood cultures. - Continue isosorbide mononitrate 30 mg qam - Continue metoprolol 25 mg qam - Continue Aspirin 81m - Planning coronary angiography for AM NPO after midnight Electrolyte disturbances/hypokalemia/hypomagnesemia Pt hypokalemic and hypomagnesemic at admission possibly due to lisinopril/HCTZ. Electrolytes repleted on 05/22.Electrolytes normal on AM labs on 05/23. - Continue to monitor with AM labs - Holding lisinopril/HCTZ Admission and Anticipated Discharge Date Admission Date: May 22, 2024 Subjective Pt is a 44 yo male with left LE cellulitis with incidentally found possible cardiac ischemia. Pt will be having a coronary angiogram today. This morning, Review of Systems Review of Systems: As per HPI Physical Exam Physical Exam: The patient is awake, alert and oriented 3, well developed and well nourished, normocephalic and atraumatic, lying in bed and in no acute distress. HEENT--PERRL, EOMI, mucous membranes and oropharynx normal Neck--supple. No JVD. No bruits. Thyroid normal, trachea midline, no adenopathy. Heart--normal S1 and S2. No murmurs, rubs or gallops. Lungs--clear bilaterally, no respiratory distress, no accessory muscle use. Abdomen--normal bowel sounds and soft. Nontender. Nondistended. Extremities--right lower extremity with trace pretibial and pedal pitting edema. Normal pedal pulses bilaterally. 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 Medial right thigh continue with erythematous streak tracking toward inguinal lymph nodes, less warmth of skin. Neurologic--cranial nerves II through XII grossly intact. Psychiatric--normal affect, mood congruent. Results & Data Results & Data Vital Signs (Past 12 Hours) Vital Signs Temp Pulse Resp BP Pulse Ox O2 Del Method 05/23/24 23:22 36.7 C 62 19 139/70 95 Room Air 05/23/24 19:39 36.7 C 63 20 151/88 H 94 Room Air
--- NOTE | 2024-05-24 07:56 | Cardiology Progress Note ---
Date of Service May 24, 2024 Assessment & Plan (1) Non-ST elevation (NSTEMI) myocardial infarction: (2) HTN (hypertension): (3) HLD (hyperlipidemia): (4) Elevated troponin: Plan ASSESSMENT/PLAN: 1. NSTEMI: Underwent PCI of D1. Dual antiplatelet therapy for at least a year. Aspirin 81 mg daily indefinitely. Recommend cardiac rehab. High intensity statin therapy. Resume NEELAM inhibitor. 2. CAD s/p Diag PCI: Aspirin 81 mg daily indefinitely. Dual antiplatelet the rapy for at least a year. Will initiate high intensity statin therapy. Resume NEELAM inhibitor. Cardiac rehab. 3. Hypertension: Blood pressure has been elevated. Resume NEELAM inhibitor. 4. Cellulitis: Blood cultures negative. Antibiotics as per primary service/infectious disease. 5. Dyslipidemia: Will initiate high intensity statin therapy. Goal LDL < 70. 6. Disposition: Cardiology will continue to follow while hospitalized. Plan of care communicated with primary hospitalist, Dr. Maynard. Will arrange cardiology follow-up in the outpatient setting in [facility]. Admission and Anticipated Discharge Date Admission Date: May 22, 2024 Subjective Patient underwent cardiac catheterization this morning. He was found to have severe CAD involving ostial/proximal large D1 vessel. He underwent PCI with Dr. Gleason. Since starting antianginal therapy, he has not had any further angina at rest. He had some shortness of breath overnight but admits that he was anxious and was having a panic attack in anticipation of his catheterization this morning. He was not short of breath this morning when evaluated nor during his cardiac catheterization. He denies melena, hematochezia, hematuria, syncope, palpitations. His significant other, [place], was present at the bedside. Physical Exam Physical Exam: Gen.: No acute distress. Alert and oriented. HEENT: Anicteric sclera. Neck: No JVD. Cardiac: Regular. Normal S1-S2. No murmurs, rubs, or gallops. Pulmonary: Clear to auscultation bilaterally without wheezes, rales, or rhonchi. Abdomen: Soft, nontender, nondistended, with normoactive bowel sounds. No bruits noted. Extremities: 2+ radial pulses bilaterally. 2+ posterior tibialis pulses bilaterally. No cyanosis. Right leg is swollen compared to the left with 1+ pitting edema. Psychiatric: Affect appears appropriate. Results & Data Vital Signs (Past 12 Hours) Vital Signs Temp Pulse Resp BP Pulse Ox O2 Del Method 05/24/24 07:29 36.5 C 109 H 18 158/97 H 96 Room Air 05/23/24 23:22 36.7 C 62 19 139/70 95 Room Air Laboratory Results Laboratory Results - last 24 hr 05/23/24 05/23/24 05/24/24 14:13 21:35 04:17 WBC 8.77 RBC 4.81 Hgb 14.7 Hct 41.8 L MCV 86.9 MCH 30.6 MCHC 35.2 RDW Std Deviation 40.4 RDW Coeff of Lou 12.7 Plt Count 288 MPV 9.4 Immature Gran % (Auto) 0.7 Neut % (Auto) 67.2 Lymph % (Auto) 22.5 [place] % (Auto) 7.6 Eos % (Auto) 1.5 Baso % (Auto) 0.5 Neut # (Auto) 5.90 Lymph # (Auto) 1.97 [place] # (Auto) 0.67 H Eos # (Auto) 0.13 Baso # (Auto) 0.04 Immature Gran # (Auto) 0.06 APTT 32 H PTT Ratio 1.2 Heparin Anti-Xa, Unfract 0.21 L 0.19 L 0.24 L Sodium 140 Potassium 3.5 Chloride 107 Carbon Dioxide 25 Anion Gap 8 BUN 13 Creatinine 0.77 Est Cr Clr Drug Dosing 176.2 eGFR 113.22 BUN/Creatinine Ratio 16.9 Glucose 100 H Calcium 8.6 Diagnostic Findings Labs reviewed and notable for normal renal function, normal potassium, normal blood counts. ECG personally reviewed 05/24/2024 4:24 AM: Sinus rhythm 62 bpm. Coronary angiography: 1. Left main: No significant CAD. 2. Left anterior descending: Large-caliber vessel that wraps around the apex. Late mid and early distal LAD diffuse 20% narrowing. Large D1 with ostial/proximal 90%. DONTE-3 flow. 3. Circumflex: Codominant vessel. No significant CAD within the circumflex. Very large branching high OM1 without significant CAD. Very small caliber OM 2. OM 3 without significant CAD. Circumflex PDA is medium in caliber, without significant CAD. 4. Right coronary artery: Codominant vessel. Large-caliber. Luminal irr egularities within the. Proximal RCA. Very small caliber PL [address] Large PDA without significant CAD. Left heart catheterization: 1. Left ventriculography was not performed. 2. No significant aortic stenosis. Peak to peak gradient across the aortic valve < 10 mmHg. 3. Mildly elevated LVEDP; 19 mmHg. Telemetry personally reviewed: Sinus rhythm. No arrhythmia. Medications Administered Current Inpatient Medications Acetaminophen (Acetaminophen 500 Mg Tab) 1,000 mg PO Q8H PRN PRN Reason: Pain or Fever Stop: 06/21/24 19:47 Last Admin: 05/23/24 11:12 Dose: 1,000 mg Aspirin (Aspirin 81 Mg Ectab) 81 mg PO [facility] Stop: 06/22/24 08:59 Last Admin: 05/24/24 07:08 Dose: 81 mg Cyanocobalamin (Cyanocobalamin (B-12) 500 Mcg Tablet) 1,000 mcg PO [facility] Stop: 06/22/24 08:59 Last Admin: 05/23/24 11:05 Dose: 1,000 mcg Heparin Sodium/Dextrose (Heparin Sodium/Dextrose) 25,000 units in 500 mls @ 32 mls/hr IV .[id number] [facility]; Protocol Stop: 06/21/24 06:44 Last Titration: 05/24/24 07:14 Dose: 1,600 units/hr, 32 mls/hr Ceftriaxone Sodium (Rocephin) 2,000 mg in 50 mls @ 100 mls/hr IV Q24H [facility] Stop: 05/30/24 13:59 Last Infusion: 05/23/24 16:21 Dose: Infused Isosorbide Mononitrate (Isosorbide [place] Extended Rel 30 Mg Tabcr) 30 mg PO [facility] Stop: 06/21/24 16:29 Last Admin: 05/23/24 08:16 Dose: 30 mg Melatonin (Melatonin 3 Mg Tab) 6 mg PO HS PRN PRN Reason: Sleep Stop: 06/21/24 18:07 Metoprolol Tartrate (Metoprolol Tartrate 25 Mg Tab) 25 mg PO BID [facility] Stop: 06/21/24 20:59 Last Admin: 05/23/24 21:10 Dose: 25 mg Nitroglycerin (Nitroglycerin Sl 0.4 Mg/Tab Tab) 0.4 mg SL Q5M PRN PRN Reason: Chest Pain Stop: 06/21/24 08:45 Ondansetron HCl (Ondansetron Inj 2 Mg/Ml 2 Ml Vial) 4 mg IV Q6H PRN PRN Reason: Nausea Stop: 06/21/24 08:45 PG Care Time/CCT Total # of Minutes Spent Total Time Spent with Patient: Total time spent is greater than 50% in coordination of care (as documented) at patient's floor/unit and/or counseling patient: Coding Level of Care Code 09993 SUB INP/OBS CARE 3/50MIN Diagnoses Non-ST elevation (NSTEMI) myocardial infarction I21.4 HTN (hypertension) I10 HLD (hyperlipidemia) E78.5 Elevated troponin R79.89
--- NOTE | 2024-05-24 09:52 | Pre Anesthesia Assessment ---
Date of Service May 24, 2024 Pre Sedation Assessment Vital Signs Temp Pulse Pulse Resp BP Pulse Ox O2 Del Method 05/24/24 07:53 37.1 C 67 18 165/99 H 95 Room Air 05/24/24 07:29 36.5 C 109 H 18 158/97 H 96 Room Air 05/23/24 23:22 36.7 C 62 19 139/70 95 Room Air 05/23/24 19:39 36.7 C 63 20 151/88 H 94 Room Air 05/23/24 15:59 67 05/23/24 15:37 36.6 C 64 18 144/80 H 95 Room Air 05/23/24 11:00 36.5 C 68 18 151/94 H Cardiovascular RRR, no murmur, no edema Respiratory normal respiratory effort, lungs clear to auscultation Pre-Sedation Airway Assessment Smoking Status: Never smoker Mallampati Class: III ASA: ASA3 NPO Status Date of Last Intake of Fluids: 05/24/24 Time of Last Intake of Fluids: 07:00 Last Oral Intake of Fluids Comment: sips with meds Date of Last Intake of Solid Food: 05/23/24 Time of Last Intake of Solid Foods: 17:00 Procedure Planning Contraindications for Sedation: none Current Medications Reviewed: Yes Notes The planned sedation has been discussed with the patient. Informed Consent was obtained. I have identified the patient, determined the appropriateness of sedation and have assessed the patient immediately prior to the procedure. All medicine(s) and interventions are by my order.
[2024-05-24] MEDS: NITROGLYCERIN/D5W 100MCG/ML 20ML SYR ONE (10:41)
[2024-05-24] MEDS: HEPARIN (PORCINE) 1000 UNIT/ML 10 ML (CATH LAB USE ONLY) ONE ×2 (10:42→10:51)
--- NOTE | 2024-05-24 10:43 | Cardiac Catheterization ---
[facility] Data: Regulatory Assistant Cardiac Status Clinical evaluation leading to the procedure CAD Presenation: Non STEMI Anginal Classification: CCS IV Heart Failure: No Cardiogenic Shock within 24 Hours: No Cardiac Arrest within 24 Hours: No Imaging Studies Past 6 Months: Yes Stress Studies Past 6 Months: No Coronary Anatomy Dominant: Co-Dominant Diagnostic Physicians Name: Sandeep Kan MD Status: Elective Closure Device Percutaneous Entry Location: Radial Closure Device: Radial Band Recommendations: PCI without planned CABG Cardiac Cath Procedure Full Procedure Date May 24, 2024 Pre-Procedure Diagnosis Pre-Procedure Diagnosis: Non STEMI AUC Score AUC Score: 8 Post-Procedure Diagnosis Post-Procedure Diagnosis: Severe CAD Procedure(s) Performed Procedure(s) Performed: Coronary Angiography and Left Heart Cath Dust Collector aSndeep Kan MD Investigator Operator(s) Shayan Estimated Blood Loss Estimated Blood Loss: < 20 ml Medication(s) Medication(s): Fentanyl, Heparin, Lidocaine 1%, Nicardipine and Versed Summary of Findings Procedures: 1. Coronary angiography 2. Left heart catheterization 3. Moderate sedation Indication: Mr. Crisostomo presented with intermittent chest discomfort and NST MAGALY, also in the setting of cellulitis which has since improved with antibiotic therapy. His anginal symptoms preceded his cellulitis by greater than 1 week. Coronary angiography: 1. Left main: No significant CAD. 2. Left anterior descending: Large-caliber vessel that wraps around the apex. Late mid and early distal LAD diffuse 20% narrowing. Large D1 with ostial/proximal 90%. DONTE-3 flow. 3. Circumflex: Codominant vessel. No significant CAD within the circumflex. Very large branching high OM1 without significant CAD. Very small caliber OM 2. OM 3 without significant CAD. Circumflex PDA is medium in caliber, without significant CAD. 4. Right coronary artery: Codominant vessel. Large-caliber. Luminal irregularities within the. Proximal RCA. Very small caliber PL [address] Large PDA without significant CAD. Left heart catheterization: 1. Left ventriculography was not performed. 2. No significant aortic stenosis. Peak to peak gradient across the aortic valve < 10 mmHg. 3. Mildly elevated LVEDP; 19 mmHg. Moderate sedation: 1. Sedation start time: 9:58 AM 2. Sedation end time: 10:21 AM Procedural details: 1. Coronary angiography was performed via the right radial artery without known complication. Impression: 1. Severe CAD involving large D1. 2. Otherwise, minimal nonobstructive CAD. 3. Codominant system. 4. No significant aortic stenosis. 5. Elevated left-sided filling pressure. Plan: 1. Images reviewed with Dr. Gleason of interventional cardiology who plans on attempting PCI of D1. 2. Risk factor modification. 3. High intensity statin therapy. 4. Cardiac rehab. Hemodynamics Rest Ao:: 144/83 Final Ao: 153/84 LV: 152/5/19 Recommendations Recommendations: PCI without planned CABG Specimens Specimens: None Radiation Exposure (mGy) < 1000 mGy. Total was not completed prior to interventional procedure. Contrast (mls) 55 ml Procedural Complication(s) None Disposition remains in slabber for PCI I attest to the content of the Intraoperative Record and any orders documented therein. Any exceptions are noted below. [facility] Card Cath Procedure Codes Cardiac Catheterization Procedure 1: Cardiovascular Cath Procedures: 08024 Coronaries and LHC (+/-LV) Moderate Sedation Procedure 1: Sedation/Anesthesia: 10889 Mod Sedation by the same physician;Init15 Min Child Age 5 & Up Procedure 2: Sedation/Anesthesia: 23932 Mod Sedation by the same physician; Ea [id number] Minutes PG Care Time/CCT Total # of Minutes Spent Total Time Spent with Patient: Total time spent is greater than 50% in coordination of care (as documented) at patient's floor/unit and/or counseling patient:
[2024-05-24] MEDS: MIDAZOLAM HCL 1 MG/ML 2ML VIAL ONE ×2 (10:50→12:15)
[2024-05-24] MEDS: fentaNYL citrate PF 100 MCG/2 ML VIAL ONE (11:01)
[2024-05-24] MEDS: OPTIRAY 350 ONE (11:02)
[2024-05-24] MEDS: CLOPIDOGREL BISULFATE 300 MG TAB ONE (11:06)
--- NOTE | 2024-05-24 11:09 | Post Anesthesia Assessment ---
Date of Service May 24, 2024 Post Sedation Assessment Vital Signs Temp Pulse Pulse Resp BP Pulse Ox O2 Del Method 05/24/24 07:53 98.7 F 67 18 165/99 H 95 Room Air 05/24/24 07:29 97.7 F 109 H 18 158/97 H 96 Room Air 05/23/24 23:22 98.1 F 62 19 139/70 95 Room Air 05/23/24 19:39 98.1 F 63 20 151/88 H 94 Room Air 05/23/24 15:59 67 05/23/24 15:37 97.9 F 64 18 144/80 H 95 Room Air Recovery Score Activity: Moves 4 extremities Respiration: Deep Breath/Cough Circulation: +/-20% PreAnes Value Consciousness: Fully Awake Oxygen Saturation: O2 needed for >90% Discharge Sedation Level of Care: Fast Track Phase II Post Sedation Plan On clinical assessment, the patient appears to have tolerated the sedation without complications. Patient is recovering as anticipated. Patient will continue to be monitored by nursing and may be discharged when sedation discharge criteria are met per below protocol. Upon Completions of procedure up to 15 minutes continue every 5 minute vital signs and the P.A.R. score; then discharge to a Phase I or Fast Track to Phase II per the following guidelines: * Discharge Patient to appropriate Phase II area if PAR is 8 or greater or r eturn to pre- procedure baseline. The post - procedure orders will be as directed. * If PAR score is less than 8 or not return to pre-procedure baseline then patient will follow Phase I monitoring till PAR is reached for Phase II. The Phase I may be done in procedure room or may call to secure a Phase I area. * If naloxone or flumazenil are used for reversal, hold in Phase I for continued monitoring from when last reversal dose was given for a minimum of 60 minutes or longer pending the nurse and/or physician discretion of patient condition before discharge to Phase II. Please call the Sedation Physician to re-evaluate and complete post-note for discharge to Phase II area. Do NOT discharge from procedure sedation or Phase 1 until post- sedation evaluation note is complete by procedure /sedation MD Sedation Discharge Instructions to be given to the patient at discharge to home.
--- NOTE | 2024-05-24 11:14 | Cardiac Catheterization ---
[facility] Data: Chief Executive Or Managing Director Cardiac Status Clinical evaluation leading to the procedure CAD Presenation: Non STEMI Anginal Classification: CCS IV Diagnostic Physicians Name: Carlos Gleason MD Closure Device Recommendations: PCI without planned CABG Cardiac Cath Procedure Full Procedure Date May 24, 2024 Pre-Procedure Diagnosis Pre-Procedure Diagnosis: Non STEMI AUC Score AUC Score: 8 Post-Procedure Diagnosis Post-Procedure Diagnosis: Severe CAD and Successful PCI Procedure(s) Performed Procedure(s) Performed: Coronary Angiography and Drug Eluting Stent Relays Draftsperson Carlos Gleason MD Cellar Pumper(s) Shayan Estimated Blood Loss Estimated Blood Loss: < 20 ml Medication(s) Medication(s): Clopidogrel, Fentanyl, Heparin, Nicardipine, Nitroglycerin and Versed Summary of Findings Indication: NSTEMI Access: 6 Fr right radial artery Catheters: EBU 3.5 guide Findings: For full details of patient's coronary angiography please see cath report dictated by Dr. Kan. Briefly, patient found to have severe branch vessel disease with 90% ostial/proximal large D1 stenosis. Decision to proceed with PCI. -- PCI -- Antithrombotic therapy: Heparin, clopidogrel Procedure: Left main cannulated with EBU 3.5 guide Pre-procedure flow DONTE 3 Data Report Analyst 50 wire passed across lesion in diagonal into distal vessel Chiquita blue wire placed into distal LAD Ostial diagonal lesion predilated with 2.5 compliant balloon Dilated lesion stented with 2.5 x 18 mm Xience drug-eluting stent Stent post-dilated with 2.75 noncompliant balloon IC vasodilators administered for spasm Post procedure DONTE 3 flow, stent well expanded with minimal residual stenosis and no apparent cardiac complications. Arterial Closure: TR band Summary: 1. Successful PCI of ostial/proximal first diagonal with single drug-eluting stent (2.5 x 18 mm Xience; postdilated with 2.75 NC). Recommendations: To PCU for continued monitoring Loaded with clopidogrel 600 mg in Chief Executive Or Managing Director Continue dual therapy with Eliquis, clopidogrel for 6 months Continue ASCVD risk factor modification Consult cardiac Rehab Hemodynamics Rest Ao:: 139/81/106 Final Ao: 130/80/102 LV: 152/19 Recommendations Recommendations: PCI without planned CABG Specimens Specimens: None Radiation Exposure (mGy) 3066 Contrast (mls) 135 Anesthesia Moderate 1831-1750 Procedural Complication(s) None Disposition PCU I attest to the content of the Intraoperative Record and any orders documented therein. Any exceptions are noted below. [facility] Card Cath Procedure Codes Moderate Sedation Procedure 1: Sedation/Anesthesia: 13762 Mod Sedation by the same physician; Ea [id number] Minutes Stenting Procedure 1: Cardiovascular Stent Procedures: 41771 Perc transcatheter placement of intracoronary stent(s), with ang PG Care Time/CCT Total # of Minutes Spent Total Time Spent with Patient: Total time spent is greater than 50% in coordination of care (as documented) at patient's floor/unit and/or counseling patient:
[2024-05-24] MEDS: lisinopril 10 MG TAB PO SCH (13:06)
--- NOTE | 2024-05-24 13:11 | Discharge Summary ---
Date of Service May 24, 2024 Admission HPI Per Admitting Provider The patient is a 44-year-old male with a past medical history including pulmonary embolism, seasonal allergies, vitamin D deficiency, hyperlipidemia, hypertension, and morbid obesity. He had visited his PCP 02/09/2024 due to left calf pain, and had a stat venous Doppler ordered at that time which was negative for DVT in the left lower extremity.. His first venous Doppler study was performed on 06/02/2023 which was negative for bilateral DVT, but did but did show great saphenous vein reflux identified in the below knee segment of the right lower extremity. He also underwent a CT angio chest PE protocol on 2023 which showed small segmental to subsegmental emboli in right upper and right lower lobes and a suspected tiny subsegmental left lower lobe pulmonary artery embolus, for which she was started on Eliquis. On 02/11/2024 he underwent left lower extremity arterial studies that were negative for any significant stenosis. The patient presents to the emergency department due to symptoms as noted above. Principal Diagnosis R leg cellulitis, coronary artery disease, Status post Stent Discharge Exam HEENT-- EOMI, mucous membranes and oropharynx normal Neck--supple. No JVD. Thyroid normal, trachea midline, no adenopathy. Heart--normal S1 and S2. No murmurs, rubs or gallops. Lungs-- no respiratory distress, no accessory muscle use. Abdomen--Nondistended. Extremities--right lower extremity with trace pretibial. Left lower extremity is without edema Dermatologic--right lower extremity with dark red central area, surrounding supervisor logging red area, with warmth. Neurologic--cranial nerves II through XII grossly intact. Psychiatric--normal affect, mood congruent. Discharge Data Allergies Allergy/AdvReac Type Severity Reaction Status Date / Time No Known Allergies Allergy Verified 05/22/24 16:54 Consultations 05/22/24 05:03 ED Decision to Admit Stat 05/22/24 08:46 Consult Cardiology Routine Consult Infectious Diseases Routine Procedures Performed Operation Date: 05/24/24 08:00 Actual Procedures p Cineradiography w/Routine Exam - Sandeep Kan MD s Cath, Left with Cors and Vent - Sandeep Kan MD s Drug Eluting Stent SGl Vessel - Carlos Gleason MD Ordered Studies 05/22/24 03:22 US venous doppler LE RT Stat 05/22/24 03:23 CT angio chest PE protocol Stat 05/24/24 06:44 CL Cath Imgs for PACS use only Routine Hospital Course (1) Cellulitis of right lower extremity from knee to ankle: (2) Lymphangitis of lower extremity: (3) Elevated troponin: (4) Chronic anticoagulation: (5) Pulmonary embolism: (6) HLD (hyperlipidemia): (7) HTN (hypertension): (8) Hypokalemia: (9) Hypomagnesemia: Plan Cellulitis right lower extremity with ascending lymphangitis Right lower extremity DVT study is negative in ED on 05/21 and negative bilateral lower extremity Doppler on 02/08. Negative left lower extremity arterial Doppler on 02/11/2024. Follows with Dr. Childress, hematology with Bruce Aguilar. Placed on IV vancomycin and Zosyn in ED. Infectious disease recommended continued broad spectrum antibiotics, repeat blood culture and MRSA testing. MRSA is negative. Blood culture obtained in ED resulted at 24 hours no growth, culture drawn 05/22 is also show no growth - Cephalexin 500mg BID x 4 days to complete 7 day course - Acetaminophen 650mg q8h PRN for pain and fever Pulmonary embolism Involving small segmental to subsegmental pulmonary arteries with evidence of mild right ventricular strain noted on CTA PE protocol on 02/09/2024. Was started on Eliquis. Last dosing taken 6:30 PM last evening. Started on heparin drip low- dose in ED in preparation for procedures. - Continue Plavix at home Elevated troponin/left-sided chest pain with mild dyspnea on exertion Serial troponin starting in ED- Troponin 682.5 with follow-up 740.2, 964 and final at 1430 was 807. EKG showed sinus at 70 bpm [address] no acute ST-T changes. CAD/NSTEMI vs endocarditis. The patient admitted to telemetry for cardiac rhythm monitoring and a 2-D echocardiogram with doppler. Coronary angiography completed on 05/24 with stent placement. - Continue isosorbide mononitrate 30 mg qam - Continue metoprolol 25 mg qam - Resume Plavix at home - Continue atrovastatin 80mg Electrolyte disturbances/hypokalemia/hypomagnesemia Pt hypokalemic and hypomagnesemic at admission possibly due to lisinopril/HCTZ. Electrolytes repleted on 05/22.Electrolytes normal on AM labs on 05/24. - Resume lisinopril/HCTZ at home Total Time Total Time Spent Total Time Spent (In Minutes): <30 Discharge Plan Discharge Items Patient Disposition: Home - Self-Care Reason For Visit: CHEST PAIN,EVALUATED TROP,RLE CELLULITIS,ASC LYMP Discharge Diagnosis: Right leg cellulitis, Coronary artery disease Condition on Discharge: Fair Activity: Resume your previous activity Non-emergency contact: Primary Care Provider Call non-emergency contact if: your symptoms worsen Follow-up/Referrals: Ana Paula Olivas DO [Primary Care Provider] - Diet: Heart Healthy Addtl Attending Provider Instructions: ACTIVITY RECOMMENDATIONS: Excess manipulation of the wrist should be avoided for the next 24-48 hours. * No lifting over 2 pounds (approximately a 1/2 gallon of milk) with the utilized arm for 24 hours. * No strenuous activity such as bowling or tennis for 3 days. * Keep the site of the procedure covered with a bandage for 24 hours. *You may shower the day after the procedure. Do not take a tub bath or submerge the puncture site in water for the next 3 days. *Do not operate any motorized equipment for 3 days. SPECIAL CARE INSTRUCTIONS: The site may be slightly bruised and sore following your procedure. Should any of the following occur, contact the Dr. who performed your procedure. 1. Redness/inflammation, swelling, chills, or fever, or colored drainage at procedure site within 3-7 days after your procedure. 2. Coldness, discoloration, ongoing numbness, severe pain, or swelling. Expect mild tingling of hand and tenderness at the puncture site for up to three days. If this persists beyond three days, or other symptoms develop, notify the Dr. who performed your procedure. BLEEDING: If the procedure site on your wrist begins to bleed, do not panic 1. Place 1 or 2 fingers firmly just slightly above the insertion site to stop the bleeding. You may be able to feel your pulse as you hold pressure. 2. Lift your finger after 5 minutes to see if the bleeding has stopped. 3. Once the bleeding has stopped, gently wipe the wrist area clean with a bandage. * If the bleeding from your wrist does not stop after 10 minutes, or if there is a large amount of bleeding or spurting, call 911 (do not drive yourself to the hospital). SKIN IRRITATION: * You may experience some redness and/or swelling in the area where radiation was administered. If any skin irritation occurs, please contact your family physician. FOLLOW UP VISIT: 1. Follow up in Dr. Kan's cardiology office in approx 1 week. His office will call you with date/time of appointment if not otherwise listed. [phone] for questions/concerns. 2. Keep any scheduled doctor appointments. Pending Studies at Discharge: No Stand-Alone Forms: My [facility], Smoking Cessation Medications and DC Order Prescriptions: New cyanocobalamin (vitamin B-12) 1,000 mcg tablet 1,000 mcg PO DAILY Qty: 30 0RF atorvastatin 40 mg Tablet 80 mg PO HS Qty: 60 0RF clopidogrel 75 mg Tablet 75 mg PO QAM Qty: 30 0RF metoprolol tartrate 25 mg Tablet 25 mg PO BID Qty: 60 0RF cephalexin 500 mg capsule 500 mg PO BID Qty: 8 0RF Continued lisinopril-hydrochlorothiazide 20-12.5 mg tablet 1 tab PO DAILY Qty: 90 3RF cholecalciferol (vitamin D3) 25 mcg (1,000 unit) capsule 2,000 unit PO DAILY loratadine [Allergy Relief (loratadine)] 10 mg tablet 10 mg PO DAILY Eliquis 5 mg tablet 5 mg PO BID Discontinued doxycycline hyclate 100 mg tablet 100 mg PO BID Qty: 14 0RF Rx Instructions: Start Date 05/21/24 x3 day supply Admission Data Admit Date/Time: 05/22/24 05:56 Attending Provider: Nixon Maynard Admit Provider: Chi Saldana Primary Care Provider: Ana Paula Olivas Other Providers: Chi Saldana; Sandeep Kan; Martha Dias; Darlene Lujan; Fernanda Young; Jose Angel Márquez; Jeanna Gallo; Benita Santiago Supervising Physician Co-Signing Physician Notes I personally examined the patient and verified all hayward points of history and exam, discussed case, and agree with decision making with Dr Gloria leg feeling better feels good overall post cath and stenting vitals noted nad RLE redness resolving nicely nontender LE cellulitis - abx now narrowed to ceftriaxone -> safe for home on cephalexin CP/NSTEMI - post cath and stenting. med management, lifestyle change discussed in depth for secondary risk reductoin anticoagulated chronically - resume eliquis otherwise as above Resident Activity Tracking Resident Involvement: Resident Care Provided Care Provided: Adult Hospital Medicine
[2024-05-24 13:25] LABS: ANTI-Xa, UFH(UnfractionatedHep 0.68 IU/ml (0.3-0.7)
--- NOTE | 2024-05-24 13:44 | Infectious Disease Progress Nt ---
Date of Service May 24, 2024 Assessment & Plan (1) Cellulitis of right lower extremity: (2) Elevated troponin: (3) History of pulmonary embolism: Plan 44yo M with h/o PE dx 01/2024 on eliquis, vitamin D deficiency, HTN, HLD who presented on 05/22 with intermittent left sided chest pain and right leg swelling, redness, and pain x 3-4 days. Here he has been afebrile, vss. Initial labs with WBC 11.20, Cr 0.74, LFT wnl. Lactate negative. High troponin. Lyme screen negative. Venous doppler negative for DVT in RLE. CTA chest negative for PE. He was started on vancomycin and zosyn. ID consulted 05/22 for assistance. ECHO done, no valvular abnormalities, technically difficult. MRSA screen negative. I was unable to see him this morning since he was at cardiac cath. Limited telepresenter availability for today. If he is continuing to clinically improve, abx can be changed to PO. Can use either cephalosporin or amoxicillin. # RLE cellulitis - improving # Elevated troponin, chest pain # h/o PE - continue CTX 2g IV q24h - if hes improving today, abx can be changed to PO (either Keflex 500mg PO qid or cefadroxil 500mg PO bid or amoxicillin) - complete a course of 7 days total of abx Fernanda Young MD [facility], Division of Infectious Diseases [employer]Connect: [phone] Admission and Anticipated Discharge Date Admission Date: May 22, 2024 Subjective This patient recommendation is based on a telemedicine consult request which was completed asynchronously through chart review and information provided by the primary physician. The patient was not seen or examined today. The evaluation is consultative in nature and all patient care and treatment decisions can either be accepted or rejected by the patient's primary hospital-based treating physician using their own independent medical judgment for their patient. Time Spent Reviewing Chart: 31+ minutes I was unable to see him this morning as he was at cardiac cath. Results & Data Vital Signs (Past 12 Hours) Vital Signs Temp Pulse Resp BP BP Pulse Ox O2 Del Method 05/24/24 13:20 36.5 C 66 16 158/89 H 97 Room Air 05/24/24 11:55 36.4 C L 71 16 163/95 H 98 Room Air 05/24/24 11:19 78 16 163/101 H 94 Room Air 05/24/24 07:53 37.1 C 67 18 165/99 H 95 Room Air 05/24/24 07:29 36.5 C 109 H 18 158/97 H 96 Room Air Laboratory Results Labs reviewed. Diagnostic Findings Imaging reviewed.
[2024-05-24 15:26] VITALS: RESP 18
[2024-05-24 15:30] VITALS: PULSE 71; TEMP 97.7; O2SAT 96
--- NOTE | 2024-05-24 15:48 | Billing Data ---
Date of Service May 24, 2024 Coding Level of Care Code 63358 IN/OBS DISCH 30 MIN/LESS
[2024-05-24 17:02] VITALS: BP 158/89
[2024-05-24] MEDS ORDERED: ATORVASTATIN 40 MG TAB PO SCH (21:00)
--- NOTE | 2024-05-24 21:11 | Electrocardiogram Report ---
Test Reason : Blood Pressure : */* mmHG Vent. Rate : 62 BPM Atrial Rate : 62 BPM P-R Int : 170 ms QRS Dur : 96 ms QT Int : 430 ms P-R-T Axes : 51 29 15 degrees QTcB Int : 436 ms Normal sinus rhythm Normal ECG When compared with ECG of 23-May-2024 15:29, No significant change was found Confirmed by Sandeep Kan ([id number]) on 05/24/2024 9:10:47 PM Referred By: REFERRED SELF Confirmed By: Sandeep Kan
--- NOTE | 2024-05-24 21:11 | Electrocardiogram Report ---
Test Reason : Blood Pressure : */* mmHG Vent. Rate : 63 BPM Atrial Rate : 63 BPM P-R Int : 172 ms QRS Dur : 94 ms QT Int : 430 ms P-R-T Axes : 46 19 16 degrees QTcB Int : 440 ms Normal sinus rhythm Normal ECG When compared with ECG of 24-May-2024 04:24, No significant change was found Confirmed by Sandeep Kan ([id number]) on 05/24/2024 9:10:59 PM Referred By: REFERRED SELF Confirmed By: Sandeep Kan
[2024-05-25] MEDS ORDERED: CLOPIDOGREL BISULFATE 75 MG TAB PO SCH (09:00)
== END 2024-05-24 17:45 | disposition home or self-care (01) | DRG 322 ==
LOC: SUATTDRO → ED 02:44 → SUATTDRO 05:56 → 2S 05:56